=== PATIENT | male | born 1940 | race Caucasian/White ===

== ENCOUNTER → 2018-06-19 10:47 | Outpatient (CLI) | payer MEDICARE, SELFPAY | PROVIDERS: Family Provider Family Medicine Geriatric Medicine; PCP Family Medicine Geriatric Medicine; Referring Provider Family Medicine Geriatric Medicine; Visit Provider Family Medicine Geriatric Medicine | DX: R69 Illness, unspecified (principal) | CPT/HCPCS: 87633 ==

== ENCOUNTER → 2018-07-08 15:08 | Outpatient (CLI) | payer MEDICARE, SELFPAY ==
[2018-07-08 17:23] LABS: Absolute Lymphocyte Count 1.97 X10^3/ul (0.83-4.51); Absolute Neutrophil Count 4.8 X10^3/uL (2.0-7.7); Basophil# 0.03 X10^3/uL; Basophil% 0.4 % (0-1); Eosinophil# 0.14 X10^3/uL; Eosinophils% 1.8 % (0-5); Hematocrit 41.9 % (40-54); Hemoglobin 13.8 g/dl (13.0-16.5); Lymphocyte # 1.97 X10^3/ul (4.0); Lymphocyte % 25.4 % (19-41); Mean Corp Hgb Conc 32.9 g/gl (32-36); Mean Corpuscular Hgb 29.9 pg (27.0-32.0); Mean Corpuscular Volume 90.7 fL (80-94); Mean Platelet Vol. 10.2 fl (6.2-12.0); Monocyte% 10.3 % (0-10); Neutrophil # 4.78 X10^3/uL (2.7-7.7); Neutrophil % 61.7 % (47-70); Platelet Count 220 K/mm3 (150-450); RBC Distribution Width CV 13.2 % (11.6-14.6); RBC Distribution Width SD 43.6 fl (35.1-43.9); Red Blood Count 4.62 M/mm3 (4.6-6.2); White Blood Count 7.8 K/mm3 (4.4-11.0)
[2018-07-08 17:31] LABS: POSITIVE COUNT NO; POSITIVE DIFFERENTIAL NO; POSITIVE MORPHOLOGY NO
[2018-07-08 17:49] LABS: Vitamin D,25 Hydroxy 23.3 ng/mL (29.95-100.01)
[2018-07-08 17:58] LABS: AST(SGOT) 19 U/L (15-37); Alanine Aminotransfer ALT/SGPT 31 U/L (16-61); Albumin, Serum 3.7 g/dL (3.2-5.0); Alkaline Phosphatase 62 U/L (45-117); Anion Gap 10 (5-15); BUN 26 mg/dL (7-18); BUN/Creat Ratio 24.5 RATIO (10-20); Calcium,Total 8.8 mg/dL (8.5-10.1); Chloride 105 mmol/L (98-107); Creatinine, Serum 1.06 mg/dL (0.70-1.30); EST Glomerular Filtration Rate 72 mL/min (>60); Est Glom Filt Rate - Afr Amer 87 mL/min (>60); Globulin 3.7 g/dL (2.2-4.2); Glucose 146 mg/dL (74-106); Protein, Total 7.4 g/dL (6.4-8.2); Sodium Level 140 mmol/L (136-145); Thyroid Stim Hormone (TSH) 1.47 uIU/mL (0.358-3.74)
--- OUTSIDE RECORDS SUMMARY | 2018-09-09 21:17 | XMS RPT_ITS ---
:1940 Author Organization [facility] Care Team Providers Name Role Phone MARILYN, CHIP CHI Referring Unavailable Marilyn, Chip Chi Attending Unavailable Marilyn, Chip Chi Referring Unavailable Marilyn, Chip Chi Primary Care Unavailable Marilyn, Chip Chi Attending Unavailable Marilyn, Chip Chi Primary Care Unavailable PROBLEMS PROBLEMS DATE TYPE CONDITION / CODE ATTENDING STATUS SOURCE 06/19/2018 Unknown R69 - Illness, Marilyn, Chip Chi Active [facility] unspecified / Community R69(ICD-10) Hospital Repository 03/10/2018 Active Unknown / NA Active [facility] UNK(Unknown) Main [place] Repository PROCEDURES PROCEDURES No Procedure Records FoundRESULTS RESULTS CBC W/DIFF, AUTOMATED Collected: 07/08/2018 Status: F Source: [place] 3:10 PM [facility] REPOSITORY TYPE CODE TESTS RESULT OUT OF RANGE REFERENCE UNITS LAB L100.1000 4.4-11.0 K/mm3 Normal WBC 7.8 LAB L100.1200 4.6-6.2 M/mm3 Normal RBC 4.62 LAB L100.1300 13.0-16.5 g/dl Normal HGB 13.8 LAB L100.1400 40-54 % Normal HCT 41.9 LAB L100.1500 80-94 fL Normal MCV 90.7 LAB L100.1600 27.0-32.0 pg Normal MCH 29.9 LAB L100.1700 32-36 g/gl Normal MCHC 32.9 LAB L100.1810 11.6-14.6 % Normal RDW CV 13.2 LAB L100.1820 35.1-43.9 fl Normal RDW SD 43.6 LAB L100.1900 150-450 K/mm3 Normal PLT 220 LAB L100.2000 6.2-12.0 fl Normal MPV 10.2 LAB L100.2100 47-70 % Normal NEUT% 61.7 LAB L100.2200 19-41 % Normal LY% 25.4 LAB L100.2300 0-10 % High MONO% 10.3 LAB L100.2400 0-5 % Normal EO% 1.8 LAB L100.2500 0-1 % Normal BASO% 0.4 LAB L100.2550 0.0-0.9 % Normal IM GRAN % 0.400 Result Comment: IG% - Immature Granulocytes (promyelocytes, myelocytes and metamyelocytes) > 1% indicates that a LEFT SHIFT is Present. LAB L100.2620 2.0-7.7 X10 3/uL Normal Absolute Neut 4.8 LAB L100.2720 0.83-4.51 X10 3/ul Normal Absolute Lymph 1.97 Performed By: #### L100.0100 #### [facility] [address] [place], [place], [address] VITAMIN D,25 HYDROXY Collected: 07/08/2018 Status: F Source: [place] 3:10 PM [facility] REPOSITORY TYPE CODE TESTS RESULT OUT OF REFERENCE UNITS RANGE LAB L506.1000 29.95-100.01 ng/mL Low Vitamin D 23.3 25-OH Result Comment: Vitamin D 25(OH) Status Range Deficiency <20 ng/mL (50nmol/L) Insuffciency 20 - 30 ng/mL (50 - 75 nmol/L) Sufficiency 30 - 100 ng/mL (75 - 250 nmol/L) Toxicity >100 ng/mL (>250 nmol/L) Performed By: #### L506.1000, L509.3000 #### [facility] [address] [place], [address] TESTOSTERONE, SERUM TOTAL Collected: 07/08/2018 Status: F Source: [place] 3:10 PM [facility] REPOSITORY TYPE CODE TESTS RESULT OUT OF REFERENCE UNITS RANGE LAB L509.3000 ng/dL Testosterone Normal 362.11 Result Comment: NORMAL REFERENCE RANGES MALE AGE <50 123.06 - 813.86 ng/dL MALE AGE >50 89.98 - 780.10 ng/dL FEMALE PREMENOPAUSE AGE 21 - 60 9.01 - 47.94 ng/dL FEMALE POSTMENOPAUSE AGE 45 - 89 <7.00 - 45.62 ng/dL REFERENCE RANGE AND METHODOLOGY CHANGED 06/05/2017 Performed By: #### L506.1000, L509.3000 #### [facility] [address] [place], [address] COMPREHENSIVE METABOLIC Collected: 07/08/2018 Status: F Source: [place] [facility] 3:10 PM [facility] REPOSITORY TYPE CODE TESTS RESULT OUT OF RANGE REFERENCE UNITS LAB L501.0100 74-106 mg/dL High GLU 146 Result Comment: Fasting Glucose result greater than or equal to 126 mg/dL suggests DIABETES MELLITUS per A.D.A. criteria. Please note revised GLUCOSE reference range effective 2017. LAB L501.1000 7-18 mg/dL High BUN 26 LAB L501.1100 0.70-1.30 mg/dL Normal CREAT,SERUM 1.06 Result Comment: The validity of the calculated GFR AND GFRAA in patients over 70 years has not been determined. Clinical correlation is essential. LAB L501.1110 >60 mL/min Normal EST GFR 72 Result Comment: Non- GFR Calc LAB L501.1115 >60 mL/min Normal EST GFR - AA 87 Result Comment: GFR Calc LAB L501.1300 10-20 RATIO High BUN/CRE 24.5 LAB L501.1500 6.4-8.2 g/dL T Normal PROT 7.4 LAB L501.1800 3.2-5.0 g/dL Normal ALB 3.7 LAB L501.1950 2.2-4.2 g/dL Normal GLOB 3.7 LAB L501.2000 0.9-2.4 RATIO Normal A/G 1.0 LAB L501.2200 8.5-10.1 mg/dL CA Normal 8.8 LAB L501.4100 15-37 U/L Normal AST 19 LAB L501.4305 45-117 U/L Normal ALK P 62 LAB L501.4405 16-61 U/L Normal ALT 31 LAB L501.4600 0.20-1.00 mg/dL T Normal BILI 0.50 LAB L501.5300 136-145 mmol/L NA Normal 140 LAB L501.5600 3.5-5.1 mmol/L K Normal 4.0 LAB L501.5900 98-107 mmol/L CL Normal 105 LAB L501.6100 21.0-32.0 mmol/L Normal CO2 25.0 LAB L501.6200 5-15 Normal GAP 10 Performed By: #### L500.4050, L501.9520 #### [facility] [address] [place], [address] THYROID STIM HORMONE Collected: 07/08/2018 Status: F Source: [place] (TSH) 3:10 PM [facility] REPOSITORY TYPE CODE TESTS RESULT OUT OF RANGE REFERENCE UNITS LAB L501.9520 0.358-3.74 uIU/mL Normal TSH 1.47 Performed By: #### L500.4050, L501.9520 #### [facility] [address] [place], [address] Observed: 06/19/2018 Status: F Source: [place] RESPIRATORY PANEL 10:43 AM [facility] MOLECULAR REPOSITORY RP PANEL ADENOVIRUS Not Detected HUMAN METAPHNEUMO Not Detected INFLUENZA A Not Detected INFLUENZA A (SUBTYPE H1) Not Detected INFLUENZA A (SUBTYPE H3) Not Detected INFLUENZA B Not Detected PARAINFLUENZA 1 Not Detected PARAINFLUENZA 2 Not Detected PARAINFLUENZA 3 Not Detected PARAINFLUENZA 4 Not Detected RHINOVIRUS Not Detected RSV A Not Detected RSV B Not Detected NAAT METHOD Testing was performed using nucleic acid amplification Performed By: #### M100.638 #### [address] [place], [place], [address] HIV 12 COMBO (AG/AB) Collected: 04/16/2018 Status: F Source: [place] 5:30 PM [facility] REFERENCE REPOSITORY TYPE CODE TESTS RESULT OUT OF REFERENCE UNITS RANGE LAB HVAGAB(LOIN Non Reactive C) HIV 12 Non Reactive Ag/Ab Performed By: #### HIV12C #### [facility] [address], [place] [address] #### SYPHGX, HSVG12 #### [facility] Routine Lab [address] [place], [place] [phone] SYPHILIS IGG WITH Collected: 04/16/2018 Status: F Source: [place] CONF 5:30 PM CLINIC REFERENCE REPOSITORY TYPE CODE TESTS RESULT OUT OF RANGE REFERENCE UNITS LAB SYPHQL(L Nonreactive OINC) Syphilis IgG, Qual Nonreactive LAB SYPHLG(L AI OINC) Syphilis IgG <0.2 LAB RPR(LOIN Non Reactive C) RPR NOTI Abnormal LAB RPRQNT(L OINC) RPR Quant NOTI Titer LAB TPAGQL(L Negative OINC) T. pallidum NOTI Abnormal IgG Qual LAB TPABG(LO Index INC) Value T. pallidum, NOTI IgG LAB SYPINT(L OINC) Syphilis NOTI Interpretation Performed By: #### HIV12C #### [facility] [address] [place] [address] #### SYPHGX, HSVG12 #### [facility] [address] [place] [address] HSVG TYP 1 AND 2 Collected: 04/16/2018 Status: F Source: [facility] 5:30 PM CLINIC REFERENCE REPOSITORY TYPE CODE TESTS RESULT OUT OF RANGE REFERENCE UNITS LAB HSVG1L(LO Negative INC) HSV IgG Abnormal 1 Qualitative Positive LAB HSVG1(ANGELICA AI NC) Herpes Simplex IgG 1 >8.0 LAB HSVG2L(LO Negative INC) HSV IgG Abnormal 2 Qualitative Positive LAB HSVG2(ANGELICA AI NC) Herpes Simplex IgG 2 >8.0 Performed By: #### HIV12C #### [facility] [address] [place] [address] #### SYPHGX, HSVG12 #### [facility] [address] [place] [address] CHLAMYDIA IGG PANL Collected: 04/16/2018 Status: F Source: [place] 5:30 PM CLINIC REFERENCE REPOSITORY TYPE CODE TESTS RESULT OUT OF RANGE REFERENCE UNITS LAB CHTRAG(ANGELICA <1:64 NC) C. trachomatis IgG DLT64 Ab LAB CHPNEG(ANGELICA <1:64 NC) C. Abnormal pneumoniae IgG Ab D128 LAB CHPSIG(ANGELICA <1:64 NC) C. psittaci IgG Ab <1:64 Performed By: #### HIV12C #### [facility] [address] [place] [phone] #### SYPHGX, HSVG12 #### [facility] [address] [place] [phone] CHLAMYDIA IGM PANL Collected: 04/16/2018 Status: F Source: [place] 5:30 PM CLINIC REFERENCE REPOSITORY TYPE CODE TESTS RESULT OUT OF REFERENCE UNITS RANGE LAB CHTRAM(ANGELICA <1:20 NC) C. trachomatis IgM DLT20 LAB CHPNEM(ANGELICA <1:20 NC) C. pneumoniae IgM DLT20 LAB CHPSIM(ANGELICA <1:20 NC) C. psittaci IgM DLT20 LAB CHMINT(ANGELICA NC) IgM Interp SEE NOTE Performed By: #### HIV12C #### [facility] [address] [place] [phone] #### SYPHGX, HSVG12 #### [facility] [address] [place] [address] Observed: 04/16/2018 Status: F Source: [place] URINE CULTURE 4:37 PM CLINIC REFERENCE REPOSITORY Specimen Desc: URINE Sp. Request/Comment: PRESRV Culture Result 10,000 - <50,000 CFU/ml Klebsiella pneumoniae(*) Insignificant colony count. No further workup. Report Status [id number] FINAL XR ABDOMEN 1V SUPINE Observed: 03/10/2018 Status: F Source: [place] 10:33 AM [facility] REPOSITORY * * *Final Report* * * DATE OF EXAM: Mar 10 2018 10:33AM WRX [id number] - XR ABDOMEN 1V SUPINE / PROCEDURE REASON: abd * * * * Physician Interpretation * * * * EXAMINATION: XR ABDOMEN 1V SUPINE HISTORY: Gasseous pain and belching with inability to keep food down x 3 days. abd. TECHNIQUE: XR ABDOMEN 1V SUPINE Laterality: NOT APPLICABLE Number of different views (projections): 1 M: XB_1 COMPARISON: Comparison is made to prior study dated 14 February 2017 RESULT: 3 Supine views of the abdomen demonstrate a nonobstructive bowel gas pattern with fecal retention. The soft tissues and bony structures are unremarkable. There are no pathologic calculi. IMPRESSION: Nonobstructive bowel gas pattern with fecal retention. Chemicals Distiller: JESSICA Transcribe Date/Time: Mar 10 2018 10:53A Dictated by : BRE ENGEL MD This examination was interpreted and the report reviewed and electronically signed by: BRE ENGEL MD on Mar 10 2018 10:59AM EST [id number] PROGRESS Observed: 03/10/2018 Status: COMPLETED Source: [place] 10:22 AM [facility] REPOSITORY HNO ID: [id number] Author: Pretty Guevara (Rt) Andrea Moser Service: (none) Author Type: District Extension Service Agent Type: Progress Notes Filed: 03/10/2018 10:33 AM Note Text: Radiology Service Progress Note PATIENT NAME: Faustino Patrick DATE OF SERVICE: March 10, 2018 TIME: 10:22 AM PATIENT IDENTITY VERIFICATION COMPLETED USING TWO (2) METHODS: Patient confirmed name verbally and Date of . PATIENT GENDER DATA: Male PATIENT RELEVANT IMPLANT DATA REVIEWED: Not Applicable RADIOLOGY DEPARTMENT: General X-ray: Exam(s) Completed: Abdomen X-Ray Abdomen PERIPHERAL IV DATA: Not applicable SIGNED BY: RT Ede March 10, 2018 10:22 AM CBC AND DIFFERENTIAL Collected: 03/10/2018 Status: F Source: [place] 10:20 AM [facility] REFERENCE REPOSITORY TYPE CODE TESTS RESULT OUT OF REFERENCE UNITS RANGE LAB WBC(LOINC) 3.70-11.00 k/uL WBC 6.60 LAB RBC(LOINC) 4.20-6.00 m/uL RBC 4.80 LAB HGB(LOINC) 13.0-17.0 g/dL Hemoglobin 14.3 LAB HCT(LOINC) 39.0-51.0 % Hematocrit 43.1 LAB MCV(LOINC) 80.0-100.0 fL MCV 89.8 LAB MCH(LOINC) 26.0-34.0 pG MCH 29.8 LAB MCHC(LOINC 30.5-36.0 g/dL ) MCHC 33.2 LAB RDWCV(LOIN 11.5-15.0 % C) RDW-CV 12.2 LAB PLTCT(LOIN 150-400 k/uL C) Platelet Count 168 LAB MPV(LOINC) 9.0-12.7 fL MPV 10.7 LAB ANEUT(LOIN % C) Neut% 59.8 LAB AANEUT(ANGELICA 1.45-7.50 k/uL NC) Abs Neut 3.95 LAB ALYMP(LOIN % C) Lymph% 25.6 LAB AALYMP(ANGELICA 1.00-4.00 k/uL NC) Abs Lymph 1.69 LAB AMONO(LOIN % C) [place]% 12.3 LAB AAMONO(ANGELICA <0.87 k/uL NC) Abs [place] 0.81 LAB AEOS(LOINC % ) Eosin% 1.8 LAB AAEOS(LOIN <0.46 k/uL C) Abs Eosin 0.12 LAB ABASO(LOIN % C) Baso% 0.5 LAB AABASO(ANGELICA <0.11 k/uL NC) Abs Baso 0.03 LAB AUNRBC(ANGELICA 0 /100 WBC NC) NRBCs 0.0 LAB ABNRBC(ANGELICA <0.01 k/uL NC) Absolute nRBC <0.01 LAB DTYP(LOINC ) DTYPE ADIFF Performed By: #### CBCDIF, BMP #### [facility] [address] [place], [place] [address] BASIC METABOLIC PANL Collected: 03/10/2018 Status: F Source: [place] 10:20 AM CLINIC REFERENCE REPOSITORY TYPE CODE TESTS RESULT OUT OF REFERENCE UNITS RANGE LAB GLU(LOINC) 74-99 mg/dL Glucose High 287 LAB BUN(LOINC) 9-24 mg/dL BUN 15 LAB CRET(LOINC 0.73-1.22 mg/dL ) Creatinine 0.92 LAB NA(LOINC) 136-144 mmol/L Low Sodium 134 LAB K(LOINC) 3.7-5.1 mmol/L Potassium 4.3 LAB CL(LOINC) 97-105 mmol/L Low Chloride 94 LAB CO2(LOINC) 22-30 mmol/L CO2 27 LAB AGAP(LOINC 9-18 mmol/L ) Anion Gap 13 LAB CA(LOINC) 8.5-10.2 mg/dL Calcium, Total 9.2 LAB GFRAA(LOIN C) eGFR- >60 Amer. LAB GFRNAA(ANGELICA . NC) eGFR-All Other Races >60 Performed By: #### CBCDIFDELLA #### [facility] [address] [place], [place] [address] CBC AND DIFFERENTIAL Collected: 12/31/2017 Status: F Source: [place] 5:03 PM [facility] REFERENCE REPOSITORY TYPE CODE TESTS RESULT OUT OF REFERENCE UNITS RANGE LAB WBC(LOINC) 3.70-11.00 k/uL WBC 7.14 LAB RBC(LOINC) 4.20-6.00 m/uL RBC 4.90 LAB HGB(LOINC) 13.0-17.0 g/dL Hemoglobin 14.8 LAB HCT(LOINC) 39.0-51.0 % Hematocrit 45.3 LAB MCV(LOINC) 80.0-100.0 fL MCV 92.4 LAB MCH(LOINC) 26.0-34.0 pG MCH 30.2 LAB MCHC(LOINC 30.5-36.0 g/dL ) MCHC 32.7 LAB RDWCV(LOIN 11.5-15.0 % C) RDW-CV 12.8 LAB PLTCT(LOIN 150-400 k/uL C) Platelet Count 179 LAB MPV(LOINC) 9.0-12.7 fL MPV 10.5 LAB ANEUT(LOIN % C) Neut% 61.2 LAB AANEUT(ANGELICA 1.45-7.50 k/uL NC) Abs Neut 4.37 LAB ALYMP(LOIN % C) Lymph% 26.6 LAB AALYMP(ANGELICA 1.00-4.00 k/uL NC) Abs Lymph 1.90 LAB AMONO(LOIN % C) [place]% 10.1 LAB AAMONO(ANGELICA <0.87 k/uL NC) Abs [place] 0.72 LAB AEOS(LOINC % ) Eosin% 1.7 LAB AAEOS(LOIN <0.46 k/uL C) Abs Eosin 0.12 LAB ABASO(LOIN % C) Baso% 0.4 LAB AABASO(ANGELICA <0.11 k/uL NC) Abs Baso 0.03 LAB AUNRBC(ANGELICA 0 /100 WBC NC) NRBCs High 0.3 LAB ABNRBC(ANGELICA <0.01 k/uL NC) Absolute High nRBC 0.02 LAB DTYP(LOINC ) DTYPE ADIFF Performed By: #### CBCDIF, CMP, LIPB, TSH #### [facility] [address] [id number] #### D2D3 #### [facility] [address] [address] COMP METABOLIC PANEL Collected: 12/31/2017 Status: F Source: [place] 5:03 PM CLINIC REFERENCE REPOSITORY TYPE CODE TESTS RESULT OUT OF REFERENCE UNITS RANGE LAB TP(LOINC) 6.3-8.0 g/dL Low Protein, Total 6.0 LAB ALB(LOINC) 3.9-4.9 g/dL Albumin 3.9 LAB CA(LOINC) 8.5-10.2 mg/dL Calcium, Total 9.4 LAB TBIL(LOINC 0.2-1.3 mg/dL ) Bilirubin, Total 0.4 LAB ALKP(LOINC 36-108 U/L ) Alkaline Phosphatase 60 LAB AST(LOINC) 14-40 U/L AST 27 LAB GLU(LOINC) 74-99 mg/dL Glucose High 204 LAB BUN(LOINC) 9-24 mg/dL BUN 17 LAB CRET(LOINC 0.73-1.22 mg/dL ) Creatinine 1.05 LAB NA(LOINC) 136-144 mmol/L Sodium 137 LAB K(LOINC) 3.7-5.1 mmol/L Potassium 4.0 LAB CL(LOINC) 97-105 mmol/L Chloride 99 LAB CO2(LOINC) 22-30 mmol/L CO2 24 LAB AGAP(LOINC 9-18 mmol/L ) Anion Gap 14 LAB ALT(LOINC) 10-54 U/L ALT 29 LAB GFRAA(LOIN C) eGFR- >60 Amer. LAB GFRNAA(ANGELICA . NC) eGFR-All Other Races >60 Performed By: #### CBCDIF, CMP, LIPB, TSH #### [facility] [address] [place] [phone] #### D2D3 #### [facility] [address] [place], [place] [phone] LIPID PANEL, BASIC Collected: 12/31/2017 Status: F Source: [place] 5:03 PM CLINIC REFERENCE REPOSITORY TYPE CODE TESTS RESULT OUT OF REFERENCE UNITS RANGE LAB CHOL(LOINC <200 mg/dL ) Cholesterol 149 LAB TRIGLY(ANGELICA <150 mg/dL NC) Triglyceride High 351 LAB HDL(LOINC) >39 mg/dL Low HDL-Cholesterol 25 LAB LDL(LOINC) <100 mg/dL LDL-Cholesterol 54 LAB NONHDL(ANGELICA <130 mg/dL NC) Non HDL Cholesterol 124 LAB FT(LOINC) hrs Fasting Time UN LAB VLDL(LOINC <30 mg/dL ) VLDL High Cholesterol 70 LAB TCHDL(LOIN <5.10 C) TC:HDL Ratio High 5.96 LAB LDLHDL(ANGELICA <2.54 NC) LDL:HDL Ratio 2.16 Performed By: #### CBCDIF, CMP, LIPB, TSH #### [facility] [address] [place] [address] #### D2D3 #### [facility] [address] [place] [address] TSH Collected: 12/31/2017 Status: F Source: [place] 5:03 CLINIC REFERENCE REPOSITORY TYPE CODE TESTS RESULT OUT OF RANGE REFERENCE UNITS LAB TSH(LOINC) 0.400-5.500 uU/mL TSH 2.600 Performed By: #### CBCDIF, CMP, LIPB, TSH #### [facility] [address] [place] [address] #### D2D3 #### [facility] [address] [place] [address] 25-HYDROXY D2+D3 Collected: 12/31/2017 Status: F Source: [place] 5:03 PM CLINIC REFERENCE REPOSITORY TYPE CODE TESTS RESULT OUT OF RANGE REFERENCE UNITS LAB 25OHD2(LOIN ng/mL C) <4.0 25-Hydroxy D2 LAB 25OHD3(LOIN ng/mL C) 24.3 25-Hydroxy D3 LAB 25OHDT(LOIN 30.0-100.0 ng/mL C) Low 24.3 25-Hydroxy D Total Performed By: #### CBCDIF, CMP, LIPB, TSH #### [facility] [address] [place], [place] [address] #### D2D3 #### [facility] [address] [place], [place] [address] CBC AND DIFFERENTIAL Collected: 07/03/2017 Status: F Source: [place] 5:03 PM CLINIC REFERENCE REPOSITORY TYPE CODE TESTS RESULT OUT OF REFERENCE UNITS RANGE LAB WBC(LOINC) 3.70-11.00 k/uL WBC 8.43 LAB RBC(LOINC) 4.20-6.00 m/uL RBC 5.19 LAB HGB(LOINC) 13.0-17.0 g/dL Hemoglobin 15.6 LAB HCT(LOINC) 39.0-51.0 % Hematocrit 48.3 LAB MCV(LOINC) 80.0-100.0 fL MCV 93.1 LAB MCH(LOINC) 26.0-34.0 pG MCH 30.1 LAB MCHC(LOINC 30.5-36.0 g/dL ) MCHC 32.3 LAB RDWCV(LOIN 11.5-15.0 % C) RDW-CV 13.1 LAB PLTCT(LOIN 150-400 k/uL C) Platelet Count 214 LAB MPV(LOINC) 9.0-12.7 fL MPV 10.5 LAB ANEUT(LOIN % C) Neut% 60.8 LAB AANEUT(ANGELICA 1.45-7.50 k/uL NC) Abs Neut 5.13 LAB ALYMP(LOIN % C) Lymph% 26.7 LAB AALYMP(ANGELICA 1.00-4.00 k/uL NC) Abs Lymph 2.25 LAB AMONO(LOIN % C) [place]% 10.7 LAB AAMONO(ANGELICA <0.87 k/uL NC) Abs [place] High 0.90 LAB AEOS(LOINC % ) Eosin% 1.3 LAB AAEOS(LOIN <0.46 k/uL C) Abs Eosin 0.11 LAB ABASO(LOIN % C) Baso% 0.5 LAB AABASO(ANGELICA <0.11 k/uL NC) Abs Baso 0.04 LAB AUNRBC(ANGELICA 0 /100 WBC NC) NRBCs 0.0 LAB ABNRBC(ANGELICA <0.01 k/uL NC) Absolute nRBC <0.01 LAB DTYP(LOINC ) DTYPE ADIFF Performed By: #### CBCDIF, CMP, LIPB, TSH #### [facility] [address] [place], [place] [address] #### D2D3 #### [facility] [address] [place] [address] COMP METABOLIC PANEL Collected: 07/03/2017 Status: F Source: [place] 5:03 PM CLINIC REFERENCE REPOSITORY TYPE CODE TESTS RESULT OUT OF REFERENCE UNITS RANGE LAB TP(LOINC) 6.3-8.0 g/dL Protein, Total 7.5 LAB ALB(LOINC) 3.9-4.9 g/dL Albumin 4.3 LAB CA(LOINC) 8.5-10.2 mg/dL Calcium, Total 9.3 LAB TBIL(LOINC 0.2-1.3 mg/dL ) Bilirubin, Total 0.6 LAB ALKP(LOINC 36-108 U/L ) Alkaline Phosphatase 66 LAB AST(LOINC) 14-40 U/L AST 24 LAB GLU(LOINC) 74-99 mg/dL Glucose High 120 LAB BUN(LOINC) 9-24 mg/dL BUN 18 LAB CRET(LOINC 0.73-1.22 mg/dL ) Creatinine 1.02 LAB NA(LOINC) 136-144 mmol/L Sodium 137 LAB K(LOINC) 3.7-5.1 mmol/L Potassium 4.4 LAB CL(LOINC) 97-105 mmol/L Chloride 99 LAB CO2(LOINC) 22-30 mmol/L CO2 27 LAB AGAP(LOINC 9-18 mmol/L ) Anion Gap 11 LAB ALT(LOINC) 10-54 U/L ALT 29 LAB GFRAA(LOIN C) eGFR- >60 Amer. LAB GFRNAA(ANGELICA . NC) eGFR-All Other Races >60 Performed By: #### CBCDIF, CMP, LIPB, TSH #### [facility] [address] [place], [place] [address] #### D2D3 #### [facility] [address] [place], [place] [phone] LIPID PANEL, BASIC Collected: 07/03/2017 Status: F Source: [place] 5:03 PM CLINIC REFERENCE REPOSITORY TYPE CODE TESTS RESULT OUT OF REFERENCE UNITS RANGE LAB CHOL(LOINC <200 mg/dL ) Cholesterol 150 LAB TRIGLY(ANGELICA <150 mg/dL NC) Triglyceride 130 LAB HDL(LOINC) >39 mg/dL HDL-Cholesterol 40 LAB LDL(LOINC) <100 mg/dL LDL-Cholesterol 84 LAB NONHDL(ANGELICA <130 mg/dL NC) Non HDL Cholesterol 110 LAB FT(LOINC) hrs Fasting Time UN LAB VLDL(LOINC <30 mg/dL ) VLDL Cholesterol 26 LAB TCHDL(LOIN <5.10 C) TC:HDL Ratio 3.75 LAB LDLHDL(ANGELICA <2.54 NC) LDL:HDL Ratio 2.10 Performed By: #### CBCDIF, CMP, LIPB, TSH #### [facility] [address] [place] [address] #### D2D3 #### [facility] [address] [place], [place] [phone] TSH Collected: 07/03/2017 Status: F Source: [place] 5:03 PM CLINIC REFERENCE REPOSITORY TYPE CODE TESTS RESULT OUT OF RANGE REFERENCE UNITS LAB TSH(LOINC) 0.400-5.500 uU/mL TSH 2.080 Performed By: #### CBCDIF, CMP, LIPB, TSH #### [facility] [address] [place], [place] [address] #### D2D3 #### [facility] [address] [place], [place] [phone] 25-HYDROXY D2+D3 Collected: 07/03/2017 Status: F Source: [place] 5:03 PM CLINIC REFERENCE REPOSITORY TYPE CODE TESTS RESULT OUT OF RANGE REFERENCE UNITS LAB 25OHD2(LOIN ng/mL C) <4.0 25-Hydroxy D2 LAB 25OHD3(LOIN ng/mL C) 17.1 25-Hydroxy D3 LAB 25OHDT(LOIN 30.0-100.0 ng/mL C) Low 17.1 25-Hydroxy D Total Performed By: #### CBCDIF, CMP, LIPB, TSH #### [facility] Lab [address] [place] [address] #### D2D3 #### [facility] [address] [place] [address] ALLERGIES ALLERGIES No Allergies Records FoundENCOUNTERS ENCOUNTERS ADMIT/DISCHARGE ACCOUNT ADMITTING ENCOUNTER LOCATION SOURCE NUMBER CLASS 07/08/2018 [id number] [facility] ing:POLAB3 Repository 06/19/2018 [id number] [facility] ing:PSN Repository 03/10/2018/03/10/[id number] Repository PAYERS PAYERS ENCOUNTER GUARANTOR PAYER SUBSCRIBER SOURCE 07/08/2018 [facility] Primary FAUSTINO Talbot [id number] Insurance:ANTHEM HOSTETLERDOB: Community NORM[employer]Y [employer]APT MEDICARE PPOPolicy [id number] Number: Repository [id number]: 330 [id number] () Date:[id number] [address] [place] [address]SL: 07/08/2018 Secondary NOT GIVENUNK Ant[place] Insurance:SELF PAY [facility] Number: Effective Repository Date:2018-07-08 06/19/2018 [facility] Primary FAUSTINO Talbot [id number] Insurance:ANTHEM HOSTETLERDOB: Community NORMANDY [employer]APT MEDICARE PPOPolicy [id number] Number: Repository [id number]: [id number] [phone] () Date:[id number] [id number] [address] [id number]: 06/19/2018 Secondary NOT GIVENUNK [employer] Insurance:SELF PAY [facility] Effective Rep[facility] Date:2018-06-19
== END ==
PROVIDERS: Family Provider Family Medicine Geriatric Medicine; PCP Family Medicine Geriatric Medicine; Visit Provider Family Medicine Geriatric Medicine
DX: I10 Essential (primary) hypertension (principal); E55.9 Vitamin D deficiency, unspecified; F52.8 Other sexual dysfunction not due to a substance or known physiological condition
CPT/HCPCS: 36415; 80053; 82306; 84403; 84443; 85025

== ENCOUNTER → 2018-11-06 | Outpatient (CLI) | payer MEDICARE, SELFPAY ==
[2018-11-06 15:40] LABS: Bacteria 0 SEEN /hpf (None Seen); Mucous, Urine 0 SEEN /hpf (<or=2+); Red Blood Cells-Urine 0 SEEN /hpf (0-5); White Blood Cells 0 SEEN /hpf (0-5)
[2018-11-06 17:59] LABS: Absolute Lymphocyte Count 2.12 X10^3/ul (0.83-4.51); Absolute Neutrophil Count 4.7 X10^3/uL (2.0-7.7); Basophil# 0.02 X10^3/uL; Basophil% 0.2 % (0-1); Eosinophil# 0.15 X10^3/uL; Eosinophils% 1.9 % (0-5); Hematocrit 43.3 % (40-54); Hemoglobin 14.2 g/dl (13.0-16.5); Lymphocyte # 2.12 X10^3/ul (4.0); Lymphocyte % 26.4 % (19-41); Mean Corp Hgb Conc 32.8 g/gl (32-36); Mean Corpuscular Hgb 29.6 pg (27.0-32.0); Mean Corpuscular Volume 90.2 fL (80-94); Mean Platelet Vol. 9.9 fl (6.2-12.0); Monocyte# 1.05 X10^3/uL; Monocyte% 13.1 % (0-10); Neutrophil # 4.65 X10^3/uL (2.7-7.7); Platelet Count 230 K/mm3 (150-450); RBC Distribution Width CV 12.9 % (11.6-14.6); RBC Distribution Width SD 42.3 fl (35.1-43.9)
[2018-11-06 18:00] LABS: Color, Urine Yellow (Yellow); Glucose, Dipstick Normal (Normal); Ketone-Dipstick Negative (Negative); Leukocyte Esterase-Dipstick Negative /ul (Negative); Nitrite-Dipstick Negative (Negative); Occult Blood-Urine Negative /ul (Negative); POSITIVE COUNT NO; POSITIVE DIFFERENTIAL NO; POSITIVE MORPHOLOGY NO; Protein-Dipstick Negative (Negative); Urine Bilirubin Dipstick Negative (Negative); Urine Clarity Sl. Cloudy (Clear); Urine Urobilinogen Normal (Normal)
[2018-11-06 18:09] LABS: Squamous Epithelial Cells - UA 0-5 SEEN /hpf (0-5)
[2018-11-06 18:27] LABS: Microalbumin,Random Urine 26.6 mg/L (NO RANGE EST.); Microalbumin:Creatinine Ratio 14.9 mg/g CRE (<30 mg/g CRE)
[2018-11-06 18:38] LABS: ALB/GLOB Ratio 1.1 RATIO (0.9-2.4); AST(SGOT) 16 U/L (15-37); Alanine Aminotransfer ALT/SGPT 33 U/L (16-61); Albumin, Serum 3.7 g/dL (3.2-5.0); Alkaline Phosphatase 64 U/L (45-117); Anion Gap 8 (5-15); BUN 27 mg/dL (7-18); BUN/Creat Ratio 23.3 RATIO (10-20); Chloride 107 mmol/L (98-107); Cholesterol 123 mg/dL (200); Creatinine, Serum 1.16 mg/dL (0.70-1.30); EST Glomerular Filtration Rate 65 mL/min (>60); Est Glom Filt Rate - Afr Amer 79 mL/min (>60); Globulin 3.5 g/dL (2.2-4.2); Glucose 135 mg/dL (74-106); High Density Lipoprotein 34 mg/dL; Potassium 4.6 mmol/L (3.5-5.1); Protein, Total 7.2 g/dL (6.4-8.2); Sodium Level 143 mmol/L (136-145); Thyroid Stim Hormone (TSH) 1.15 uIU/mL (0.358-3.74); Triglycerides 222 mg/dL; Very Low Density Lipoprotein 44 mg/dL (5-40)
[2018-11-06 18:40] LABS: Hemoglobin A1c 7.3 % (4.2-6.3)
== END | disposition home or self-care (01) ==
PROVIDERS: Family Provider Family Medicine; PCP Family Medicine; Referring Provider Family Medicine; Visit Provider Family Medicine
DX: I10 Essential (primary) hypertension (principal); E78.5 Hyperlipidemia, unspecified; E11.9 Type 2 diabetes mellitus without complications
CPT/HCPCS: 36415; 80053; 80061; 81001; 82043; 82570; 83036; 84443; 85025

== ENCOUNTER → 2019-01-07 | Outpatient (CLI) | payer MEDICARE, SELFPAY ==
--- NOTE | 2019-01-07 09:23 | BD_ITS ---
STUDY: DUAL ENERGY X-RAY ABSORPTIOMETRY / DXA REASON FOR EXAM: Male, 78 years old. Loss of height. TECHNIQUE: Bone Mineral Density (BMD) measurements of lumbar spine and bilateral hips were obtained. COMPARISON: None. FINDINGS: Lumbar Spine (L1-L4): g/cm2 (1.311) / T-score (0.8) / Z-score (1.4) Findings are suggestive of normal bone density with a low fracture risk. Left Femur Total: g/cm2 (0.949) / T-score (-1.1) / Z-score (-0.1) Left Femoral Neck: g/cm2 (0.762) / T-score (-2.4) / Z-score (-0.9) Right Femur Total: g/cm2 (0.939) / T-score (-1.1) / Z-score (-0.1) Right Femoral Neck: g/cm2 (0.770) / T-score (-2.3) / Z-score (-0.9) BD/Dexa Bone Density Study IMPRESSION: The patient is considered osteopenic as outlined below according to World [place] Organization (WHO) criteria with a high fracture risk. Reference Information: The T-score is the number of standard deviations above or below the standard which is normal for young adults at their peak bone mineral density. The World Health Organization (WHO) interprets the T-scores as follows: Above -1 Normal bone density Between -1 and -2.5 Osteopenia Equal to / or below -2.5 Osteoporosis As a practical clinical guideline, osteopenia may be graded as follows: Mild -1 through -1.5 Moderate -1.6 through -2.0 Severe -2.1 through -2.4 The Z-score is the number of standard deviations above or below age-matched controls. A Z-score of less than -1.5 would be considered abnormal. References: 1. NIH Osteoporosis and Related Bone Diseases http://www.osteo.org 2. International Society for Clinical Densitometry http://www.iscd.org 3. National Osteoporosis Foundation http://www.nof.org Electronically Signed: Speedy Solorzano, at 11:20 EDT , Service support ,
== END | disposition home or self-care (01) ==
LOC: OPBD 09:21
PROVIDERS: Family Provider Family Medicine; PCP Family Medicine; Referring Provider Family Medicine; Visit Provider Family Medicine
DX: M85.88 Other specified disorders of bone density and structure, other site (principal)
CPT/HCPCS: 77080

== ENCOUNTER → 2019-02-12 | Outpatient (CLI) | payer MEDICARE, SELFPAY ==
[2019-02-12 10:10] LABS: Absolute Lymphocyte Count 2.08 X10^3/uL (0.83-4.51); Absolute Neutrophil Count 4.5 X10^3/uL (2.0-7.7); Basophil# 0.03 X10^3/uL; Basophil% 0.4 % (0-1); Eosinophil# 0.19 X10^3/uL; Eosinophils% 2.5 % (0-5); Hematocrit 42.7 % (40-54); Hemoglobin 14.1 g/dL (13.0-16.5); Lymphocyte # 2.08 X10^3/ul (4.0); Lymphocyte % 27.2 % (19-41); Mean Corpuscular Hgb 30.4 pg (27.0-32.0); Mean Platelet Vol. 9.3 fl (6.2-12.0); Monocyte# 0.81 X10^3/uL; Monocyte% 10.6 % (0-10); NRBC Flagged by Analyzer 0 % (0-5); Neutrophil # 4.48 X10^3/uL (2.7-7.7); Neutrophil % 58.6 % (47-70); Platelet Count 232 K/mm3 (150-450); RBC Distribution Width CV 12.7 % (11.6-14.6); RBC Distribution Width SD 42.7 fl (35.1-43.9); Red Blood Count 4.64 M/mm3 (4.6-6.2); White Blood Count 7.6 K/mm3 (4.4-11.0)
[2019-02-12 10:28] LABS: Hemoglobin A1c 6.8 % (4.2-6.3)
[2019-02-12 10:46] LABS: ALB/GLOB Ratio 0.9 RATIO (0.9-2.4); AST(SGOT) 18 U/L (15-37); Alanine Aminotransfer ALT/SGPT 35 U/L (16-61); Albumin, Serum 3.5 g/dL (3.2-5.0); Alkaline Phosphatase 71 U/L (45-117); Anion Gap 6 (5-15); BUN 21 mg/dL (7-18); BUN/Creat Ratio 17.4 RATIO (10-20); Calcium,Total 8.9 mg/dL (8.5-10.1); Chloride 106 mmol/L (98-107); Cholesterol 120 mg/dL (200); Creatinine, Serum 1.21 mg/dL (0.70-1.30); EST Glomerular Filtration Rate 62 mL/min (>60); Est Glom Filt Rate - Afr Amer 75 mL/min (>60); Globulin 3.7 g/dL (2.2-4.2); Glucose 133 mg/dL (74-106); High Density Lipoprotein 32 mg/dL; Phosphorus 2.8 mg/dL (2.5-4.9); Potassium 4.5 mmol/L (3.5-5.1); Protein, Total 7.2 g/dL (6.4-8.2); Sodium Level 141 mmol/L (136-145); Triglycerides 163 mg/dL; Very Low Density Lipoprotein 33 mg/dL (5-40)
[2019-02-12 10:52] LABS: Vitamin D,25 Hydroxy 27.2 ng/mL (29.95-100.01)
== END | disposition home or self-care (01) ==
LOC: MFPLAB 09:35
PROVIDERS: Family Provider Family Medicine; PCP Family Medicine; Referring Provider Family Medicine; Visit Provider Family Medicine
DX: M85.80 Other specified disorders of bone density and structure, unspecified site (principal); I10 Essential (primary) hypertension; E78.5 Hyperlipidemia, unspecified; E11.9 Type 2 diabetes mellitus without complications
CPT/HCPCS: 36415; 80053; 80061; 82306; 83036; 84100; 85025

== ENCOUNTER 2019-05-07 05:33 | Day surgery (SDC) | payer MEDICARE, SELFPAY ==
--- NOTE | 2019-05-04 02:05 | HP_ITS ---
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 Is patient in pain?: No Allergies No Known Allergies Allergy (Unverified 05/04/19 13:56) Medications atorvastatin 20 mg tablet PO #90 tab 05/04/19 [History Confirmed 05/04/19] lisinopril 20 mg-hydrochlorothiazide 12.5 mg tablet PO #60 tab 05/04/19 [History Confirmed 05/04/19] melatonin 10 mg capsule 10 mg PO HS 05/04/19 [History Confirmed 05/04/19] metformin 1,000 mg tablet PO #180 tab 05/04/19 [History Confirmed 05/04/19] metoprolol tartrate 25 mg tablet PO #180 tab 05/04/19 [History Confirmed 05/04/19] omeprazole 20 mg capsule,delayed release PO #30 cap 05/04/19 [History Confirmed 05/04/19] pioglitazone 30 mg tablet PO #90 tab 05/04/19 [History Confirmed 05/04/19] tamsulosin 0.4 mg capsule PO #90 cap 05/04/19 [History Confirmed 05/04/19] PFSH Medical History BPH (benign prostatic hyperplasia) (Acute) Diabetes (Acute) GERD (gastroesophageal reflux disease) (Acute) High cholesterol (Acute) HTN (hypertension) (Chronic) Surgical History S/P bilateral inguinal hernia repair (Acute) Family History Mother Diabetes Father Heart disease Sister Breast cancer Social History (Updated 05/04/19 @ 14:05 by Dexter Jordan MD) Smoking Status: Former smoker alcohol intake: never HPI HPI HPI: FAUSTINO PATRICK, is a 78 M who presents to the office today for HPI HPI Surgical H&P: Yes HPI: FAUSTINO PATRICK, is a 78 M who presents to the office today for surgical consultation regarding reflux and heartburn. Patient was referred by Dr Luc Aranda a written copy of my surgical consult recommendations will return to him. The patient has had for an extended period of time likely over 10 years symptomatic reflux disease. He has never had an upper endoscopy. He states that he is medicine dependent in order to keep the symptoms at bay. He has not noticed any bright red blood per rectum or melena. Has not had any unexpected weight loss. As of February 03 9019 his BUN is 21 creatinine 1.21. Liver function tests were normal. His white blood cell count was 7.6 with a hemoglobin of 14.1 and a platelet count returned 32,000. Now in our research we detected that June 06, 2010 at the [place] he had a colonoscopy performed. This demonstrated 2 polyps at the base of the cecum. One removed with snare and another with cold forceps. The pathology showed tubular adenoma. It was recommended to the patient that time that he return for follow-up colonoscopy at 5 years. He is not not done so as of yet. He denies any abdominal pain. Denies any change of bowel habit. ROS General General: No weight change, appetite, fatigue, colon cancer, breast cancer or weakness HEENT HEENT: No difficulty swallowing, eye injury, eye surgery, swollen glands or hoarseness Endo Endocrine: Yes diabetes mellitus; no thyroid disease, thyroid cancer, Hair loss, heat intolerance or cold intolerance Skin Skin: Yes changing moles; no rash Breast Breast: No left breast lump, right breast lump, nipple discharge, breast pain, abnormal mammogram, abnormal US or breast enlargement Musc Musculoskeletal: No back problems, arthritis, rheumatoid arthritis, gout or joint pain Cardio Cardiovascular: Yes high blood pressure; no murmur, pacemaker, heart disease, atrial fibrillation, heart attack, heart stent, palpitations, shortness of breat with exertion or chest pain Psych Psychiatric: No depression, anxiety or hearing voices Resp Respiratory: No shortness of breath, No sleep apnea, No cough, No COPD, No asthma, No emphysema, No wheezing Gastro Gastrointestinal: No abdominal pain, No nausea or vomiting, No diarrhea, No constipation, No blood in stool, Yes acid reflux, No hemorrhoids, No ulcers, No gallbladder problem, No black,tarry stools Guru Hematologic: Yes blood thinners, No blood disorders, No bleeding, No anemia, No blood clots Neuro Neurologic: No system reviewed and no additional complaints, except as docu, No as per HPI, No abnormal walking, No abnormal hearing, No abnormal movements, No abnormal speech, No behavioral changes, No burning sensations, No confusion, No seizure-like activity, No unsteadiness, No dizziness, No localized weakness, No frequent falls, No headache(s), No lack of coordination, No loss of vision, No memory loss, No numbness, No other visual disturbances, No radiating pain, No restless legs, No sensory deficit, No fainting, No tingling, No tremor(s), No weakness, No other Exam Const General: cooperative, healthy appearing, comfortable, no acute distress Nutritional Appearance: obese Orientation: alert, awake HENMT Head: normal to inspection Eyes General: appearance normal, both eyes and all related structures Chest Breast Palpation: No nipple discharge Resp Effort & Inspection: normal respiratory effort Auscultation: clear to auscultation bilaterally Cardio Rate: regular rate Rhythm: regular rhythm Heart Sounds: no murmurs GI Palpation: soft, no hepatosplenomegaly Auscultation: normal bowel sounds Other: Bulbous abdomen, no fluid wave, no mass, Other: Well-healed oblique bilateral groin incisions Musc Cervical Spine: normal cervical lordosis Neuro Cognition: normal cognition Extrem General: no calf tenderness bilaterally Psych Affect: normal affect Assessment & Plan Problems 1. Gastroesophageal reflux disease, esophagitis presence not specified K21.9 2. Personal history of colonic polyps Z86.010 Patient Instructions I recommended the patient a esophagogastroduodenoscopy with anticipated biopsy. Very careful inspection of the EG junction for reflux changes or possible changes of Baldwin's will be pursued. Inspection for possible H. pylori as well. In addition the patient has a personal history of colon polyps with 2 tubular adenoma removed from his cecum. His last colonoscopy was May 2010. He was supposed to have follow-up at 5 years. I recommend to have colonoscopy with possible biopsy or polypectomy as indicated. He is aware of the slightly increased risk because of the cecal location of his previous polyps of the potential for recurrence. He has had an opportunity to ask and have questions answered. We will schedule and proceed at his discretion. I very much appreciate the kind opportunity of assisting with his surgical care. CC: Dr Luc Jordan M.D., F.A.C.S. Coding Level of Care Code 84933 Diagnoses Gastroesophageal reflux disease, esophagitis presence not specified K21.9 ??Esophagitis presence: esophagitis presence not specified Personal history of colonic polyps Z86.010 05/04/19 1405 <Electronically signed by Dexter christine MD> Date _ Dexter Jordan MD I have re-examined the patient. There are no clinical changes since date of exam.
[2019-05-04 13:56] VITALS: BMI 29.2
[2019-05-07] VITALS (9 sets, daily range): BP systolic 66–96; BP diastolic 43–59; PULSE 58–76; RESP 15–16; TEMP 36.2–36.4; O2SAT 92–96; BMI 28.6
[2019-05-07] MEDS: Lactated Ringers 1,000 ML 100 ML IV (06:05)
[2019-05-07 06:16] LABS: Bedside Glucose 130 mg/dL (70-110)
--- NOTE | 2019-05-07 06:30 | EGD_PTH ---
PATIENT: FAUSTINO PATRICK LOC: EN U#:[id number] AGE/SX: 78/M ROOM: RE05/07/[address]: Dr. Dexter Jordan MD : 1940 BED: DIS: 05/07/2019 SPEC #: [id number] RECD: 05/07/19 08:56 STATUS: NYDIA ERIC #: [id number] LUIS: 05/07/19 06:[address]: Dexter Jordan DEPT: SURGICAL PATHOLOGY RECD BY: Eyad Prabhakar ENTERED: 05/07/19 11:30 SP TYPE: EGD BIOPSY OT DR: Dr. Luc Aranda MD Tissues: A - Gastric mucous membrane B - Esophageal mucous membrane C - Cecum, NOS D - Descending colon Procedures: Special Stain Group II Surgery Specimen Level IV Alcian Blue/PAS (control) HEADER OPERATION: Colonoscopy, EGD ([facility] [place] PRE-OP DIAGNOSIS: Gastric reflux TISSUE SUBMITTED: A - Antrum biopsy for H. pylori and path, B - Distal esophagus biopsy, C - Cecal polyp biopsy, D - Descending colon polyp biopsy MICROSCOPIC DIAGNOSIS A. Antrum, biopsy: Mild gastritis. See microscopic description and comment. B. Distal esophagus, biopsy: Fragments of gastroesophageal mucosa with focal minimal intestinal metaplasia (goblet cell metaplasia), consistent with Baldwin's esophagus. Focal moderate chronic inflammation and minimal acute inflammation. Negative for dysplasia. See comment. C. Cecal polyp, biopsy: Tubular adenoma. D. Descending colon polyp, biopsy: Tubular adenoma. SJ:mono 05/08/19 COMMENT A. The results of immunohistochemistry for Helicobacter pylori will be reported separately ([id number]). B. Alcian blue/PAS stain with matched control is used in the evaluation of the specimen. MICROSCOPIC DESCRIPTION Slides are reviewed. A. The specimen shows fragments of gastric mucosa with chronic inflammatory cell infiltrates in the lamina propria consisting of lymphocytes and plasma cells, consistent with mild chronic gastritis. GROSS DESCRIPTION A - Received in fixative is one container labeled with the patient's name and designated antrum biopsy. The specimen consists of one irregular fragment of light mishra soft tissue that measures 0.4 x 0.2 x 0.1 cm. The specimen is totally submitted in one cassette. B - Received in fixative is one container labeled with the patient's name and designated distal esophagus biopsy. The specimen consists of multiple irregular fragments of light mishra soft tissue that in aggregate measure 1.5 x 0.5 x 0.1 cm. The specimen is totally submitted in one cassette. C - Received in fixative is one container labeled with the patient's name and designated cecal polyp biopsy. The specimen consists of two irregular fragments of light mishra soft tissue that in aggregate measure 0.4 x 0.2 x 0.1 cm. The specimen is totally submitted in one cassette. D - Received in fixative is one container labeled with the patient's name and designated descending colon polyp biopsy. The specimen consists of two irregular fragments of light mishra soft tissue that in aggregate measure 0.8 x 0.3 x 0.1 cm. The specimen is totally submitted in one cassette. / SJ:rg 05/07/19 TC: CPT: 44645 x4, 40592
--- NOTE | 2019-05-07 06:30 | IMM_PTH ---
PATIENT: FAUSTINO PATRICK LOC: EN U#:[id number] AGE/SX: 78/M ROOM: RE05/07/[address]: Dr. Dexter Jordan MD : 1940 BED: DIS: 05/07/2019 SPEC #: [id number] RECD: 05/07/19 13:22 STATUS: NYDIA REPippa #: [id number] LUIS: 05/07/19 06:[address]: Dexter Jordan DEPT: IMMUNOHISTOCHEMISTRY RECD BY: Emmy Hernández ENTERED: 05/07/19 13:23 SP TYPE: IMMUNO OTHR DR: Dr. Luc Aranda MD Tissues: A - Stomach, NOS Procedures: H Pylori (initial) PHYSICIAN & INSTITUTION [place] [address] SPECIMEN INFORMATION: Tissue Source: A - Antrum biopsy Clinical Info: Gastric reflux Specimen Number: [id number] CPT code: 78674 METHODOLOGY: Deparaffinized sections of prefer/formalin-fixed tissue or PAP/DQ stained slides are incubated with monoclonal/polyclonal antibodies/oligonucleotide probes. Localization is made via biotin free immunoperoxidase method. Appropriate controls are performed and reacted as expected. Results on target cell population are indicated in the following table: RESULTS: ANTIBODY / CLONE RESULT Block A H Pylori (polyclonal) negative These tests were developed and their performance characteristics determined by [facility]. They may not have been cleared or approved by the U.S. Food and Drug Administration. The FDA has determined that such clearance or approval is not necessary. INTERPRETATION: A. Antrum biopsy: Negative for Helicobacter pylori organisms. SJ:mono 05/08/19
--- NOTE | 2019-05-07 06:53 | OP.EGD_ITS ---
Patient Name: Jorgito Melendrez Procedure Date: 05/07/2019 6:20 AM Date of : 1940 Age: 78 Procedure: Upper GI endoscopy Indications: Suspected gastro-esophageal reflux disease Providers: Dexter Jordan MD Referring MD: Luc Aranda Medicines: See the Anesthesia note for documentation of the administered medications Complications: No immediate complications. Procedure: Pre-Anesthesia Assessment: - Prior to the procedure, a History and Physical was performed, and patient medications and allergies were reviewed. The patient's tolerance of previous anesthesia was also reviewed. The risks and benefits of the procedure and the sedation options and risks were discussed with the patient. All questions were answered, and informed consent was obtained. Prior Anticoagulants: The patient has taken no previous anticoagulant or antiplatelet agents. ASA Grade Assessment: II - A patient with mild systemic disease. After reviewing the risks and benefits, the patient was deemed in satisfactory condition to undergo the procedure. After obtaining informed consent, the endoscope was passed under direct vision. Throughout the procedure, the patient's blood pressure, pulse, and oxygen saturations were monitored continuously. The gastroscope was introduced through the mouth, and advanced to the second part of duodenum. The upper GI endoscopy was accomplished without difficulty. The patient tolerated the procedure well. Scope In: 6:26:17 AM Scope Out: 6:33:55 AM Total Procedure Duration Time 0 hours 7 minutes 38 seconds Findings: A medium-sized hiatal hernia was present. There were esophageal mucosal changes suspicious for short-segment Baldwin's esophagus present in the distal esophagus. The maximum longitudinal extent of these mucosal changes was < 3 cm in length. Mucosa was biopsied with a cold forceps for histology. Diffuse mildly erythematous mucosa without bleeding was found in the gastric antrum. Biopsies were taken with a cold forceps for histology. The examined duodenum was normal. The Z-line was irregular and was found 40 cm from the incisors. Impression: - Medium-sized hiatal hernia. - Esophageal mucosal changes suspicious for short-segment Baldwin's esophagus. Biopsied. - Erythematous mucosa in the antrum. Biopsied. - Normal examined duodenum. - Z-line irregular, 40 cm from the incisors. Recommendation: - Discharge patient to home. - Resume previous diet. - Continue present medications. - Telephone my office for pathology results in 1 week. Procedure Code(s): --- Professional --- 51987, Esophagogastroduodenoscopy, flexible, transoral; with biopsy, single or multiple Diagnosis Code(s): --- Professional --- K44.9, Diaphragmatic hernia without obstruction or gangrene K22.8, Other specified diseases of esophagus K31.89, Other diseases of stomach and duodenum CPT copyright 2017 [employer]. All rights reserved. The codes documented in this report are preliminary and upon garment fitter review may be revised to meet current compliance requirements. Dexter Jordan MD 05/07/2019 6:53:31 AM This report has been signed electronically. Number of Addenda: 0 Note Initiated On: 05/07/2019 6:20 AM
--- NOTE | 2019-05-07 06:56 | OP.COLON_ITS ---
Patient Name: Jorgito Melendrez Procedure Date: 05/07/2019 6:35 AM Date of : 1940 Age: 78 Procedure: Colonoscopy Indications: High risk colon cancer surveillance: Personal history of colonic polyps Providers: Dexter Jordan MD Referring MD: Luc Aranda Medicines: See the Anesthesia note for documentation of the administered medications Patient Profile: Last Colonoscopy: May 2010. Complications: No immediate complications. Procedure: Pre-Anesthesia Assessment: - Prior to the procedure, a History and Physical was performed, and patient medications and allergies were reviewed. The patient's tolerance of previous anesthesia was also reviewed. The risks and benefits of the procedure and the sedation options and risks were discussed with the patient. All questions were answered, and informed consent was obtained. Prior Anticoagulants: The patient has taken no previous anticoagulant or antiplatelet agents. ASA Grade Assessment: II - A patient with mild systemic disease. After reviewing the risks and benefits, the patient was deemed in satisfactory condition to undergo the procedure. After I obtained informed consent, the scope was passed under direct vision. Throughout the procedure, the patient's blood pressure, pulse, and oxygen saturations were monitored continuously. The Colonoscope was introduced through the anus and advanced to the cecum, identified by appendiceal orifice and ileocecal valve. The colonoscopy was performed without difficulty. The patient tolerated the procedure well. The quality of the bowel preparation was good. The ileocecal valve was photographed. Scope In: 6:36:23 AM Scope Withdrawal Time 0 hours 7 minutes 23 seconds Scope Out: 6:48:20 AM Total Procedure Duration Time 0 hours 11 minutes 57 seconds Findings: Hemorrhoids were found on perianal exam. The digital rectal exam was abnormal. Pertinent negatives include normal prostate (size, shape, and consistency). A 5 mm polyp was found in the cecum. The polyp was sessile. The polyp was removed with a cold biopsy forceps. Resection and retrieval were complete. A 3 mm polyp was found in the descending colon. The polyp was sessile. The polyp was removed with a cold biopsy forceps. Resection and retrieval were complete. Multiple diverticula were found in the sigmoid colon and descending colon. Impression: - Hemorrhoids found on perianal exam. - Abnormal digital rectal exam. - One 5 mm polyp in the cecum, removed with a cold biopsy forceps. Resected and retrieved. - One 3 mm polyp in the descending colon, removed with a cold biopsy forceps. Resected and retrieved. - Diverticulosis in the sigmoid colon and in the descending colon. Recommendation: - Discharge patient to home. - Resume previous diet. - Continue present medications. - Repeat colonoscopy in 5 years for surveillance based on pathology results. - Telephone my office for pathology results in 1 week. Procedure Code(s): --- Professional --- 47074, Colonoscopy, flexible; with biopsy, single or multiple Diagnosis Code(s): --- Professional --- Z86.010, Personal history of colonic polyps K64.9, Unspecified hemorrhoids K62.89, Other specified diseases of anus and rectum D12.0, Benign neoplasm of cecum D12.4, Benign neoplasm of descending colon K57.30, Diverticulosis of large intestine without perforation or abscess without bleeding CPT copyright 2017 [employer]. All rights reserved. The codes documented in this report are preliminary and upon lockstitch shoulder joiner review may be revised to meet current compliance requirements. Dexter Jordan MD 05/07/2019 6:56:34 AM This report has been signed electronically. Number of Addenda: 0 Note Initiated On: 05/07/2019 6:35 AM
== END 2019-05-07 08:05 | disposition home or self-care (01) ==
LOC: EN 05:33 → AC 05:34
PROVIDERS: Family Provider Family Medicine; PCP Family Medicine; Referring Provider Family Medicine; Visit Provider Surgery
PROC: 0DJD8ZZ Inspection of Lower Intestinal Tract, Via Natural or Artificial Opening Endoscopic (ICD-10-PCS; CPT 45378; principal; 2019-05-07 06:25)
DX: K21.9 Gastro-esophageal reflux disease without esophagitis (principal); K22.70 Barrett's esophagus without dysplasia; K29.70 Gastritis, unspecified, without bleeding; K44.9 Diaphragmatic hernia without obstruction or gangrene; K64.9 Unspecified hemorrhoids; K62.89 Other specified diseases of anus and rectum; D12.0 Benign neoplasm of cecum; D12.4 Benign neoplasm of descending colon; K57.30 Diverticulosis of large intestine without perforation or abscess without bleeding; Z86.010 Personal history of colon polyps; I10 Essential (primary) hypertension; E78.00 Pure hypercholesterolemia, unspecified; E11.9 Type 2 diabetes mellitus without complications; E66.9 Obesity, unspecified; Z68.29 Body mass index [BMI] 29.0-29.9, adult; Z79.84 Long term (current) use of oral hypoglycemic drugs; Z79.899 Other long term (current) drug therapy; Z87.891 Personal history of nicotine dependence
CPT/HCPCS: 43239; 45380; 82962; 88305; 88313; 88342; J7120; J2405

== ENCOUNTER → 2019-06-29 10:14 | Outpatient (CLI) | payer MEDICARE, SELFPAY ==
[2019-05-07 05:57] VITALS: BMI 28.6
[2019-06-29 13:02] LABS: Absolute Lymphocyte Count 2.04 X10^3/uL (0.83-4.51); Absolute Neutrophil Count 3.5 X10^3/uL (2.0-7.7); Basophil# 0.05 X10^3/uL; Basophil% 0.8 % (0-1); Eosinophil# 0.15 X10^3/uL; Eosinophils% 2.3 % (0-5); Hematocrit 43.1 % (40-54); Hemoglobin 13.9 g/dL (13.0-16.5); Lymphocyte # 2.04 X10^3/ul (4.0); Lymphocyte % 31.4 % (19-41); Mean Corp Hgb Conc 32.3 g/dL (32-36); Mean Corpuscular Hgb 29.4 pg (27.0-32.0); Mean Corpuscular Volume 91.1 fL (80-94); Monocyte# 0.72 X10^3/uL; Monocyte% 11.1 % (0-10); NRBC Flagged by Analyzer 0 % (0-5); Neutrophil % 53.9 % (47-70); Platelet Count 221 K/mm3 (150-450); RBC Distribution Width SD 43.5 fl (35.1-43.9); Red Blood Count 4.73 M/mm3 (4.6-6.2); White Blood Count 6.5 K/mm3 (4.4-11.0)
[2019-06-29 13:27] LABS: Vitamin D,25 Hydroxy 21.3 ng/mL (29.95-100.01)
[2019-06-29 14:38] LABS: AST(SGOT) 21 U/L (15-37); Alanine Aminotransfer ALT/SGPT 34 U/L (16-61); Albumin, Serum 3.7 g/dL (3.2-5.0); Alkaline Phosphatase 65 U/L (45-117); Anion Gap 8 (5-15); BUN 26 mg/dL (7-18); BUN/Creat Ratio 18.1 RATIO (10-20); Calcium,Total 9.2 mg/dL (8.5-10.1); Chloride 106 mmol/L (98-107); Cholesterol 141 mg/dL (200); Creatinine, Serum 1.44 mg/dL (0.70-1.30); EST Glomerular Filtration Rate 51 mL/min (>60); Est Glom Filt Rate - Afr Amer 61 mL/min (>60); Globulin 3.6 g/dL (2.2-4.2); Glucose 157 mg/dL (74-106); High Density Lipoprotein 33 mg/dL; Phosphorus 3.4 mg/dL (2.5-4.9); Potassium 3.8 mmol/L (3.5-5.1); Protein, Total 7.3 g/dL (6.4-8.2); Sodium Level 138 mmol/L (136-145); Triglycerides 138 mg/dL; Very Low Density Lipoprotein 28 mg/dL (5-40)
[2019-06-29 14:40] LABS: Microalbumin,Random Urine 39.6 mg/L (NO RANGE EST.); Microalbumin:Creatinine Ratio 30.7 mg/g CRE (<30 mg/g CRE)
== END ==
LOC: MFPLAB 10:14
PROVIDERS: Family Provider Family Medicine; PCP Family Medicine; Referring Provider Family Medicine; Visit Provider Family Medicine
DX: I10 Essential (primary) hypertension (principal); E11.9 Type 2 diabetes mellitus without complications; E78.5 Hyperlipidemia, unspecified; M85.80 Other specified disorders of bone density and structure, unspecified site; E55.9 Vitamin D deficiency, unspecified
CPT/HCPCS: 36415; 80053; 80061; 82043; 82306; 82570; 83036; 84100; 85025

== ENCOUNTER → 2019-10-28 11:28 | Outpatient (CLI) | payer MEDICARE, SELFPAY ==
[2019-05-07 05:57] VITALS: BMI 28.6
[2019-10-28 15:24] LABS: Absolute Lymphocyte Count 2.36 X10^3/uL (0.83-4.51); Absolute Neutrophil Count 4.5 X10^3/uL (2.0-7.7); Basophil# 0.05 X10^3/uL; Basophil% 0.6 % (0-1); Eosinophil# 0.14 X10^3/uL; Eosinophils% 1.8 % (0-5); Hematocrit 41.7 % (40-54); Hemoglobin 13.7 g/dL (13.0-16.5); Lymphocyte # 2.36 X10^3/ul (4.0); Lymphocyte % 29.9 % (19-41); Mean Corp Hgb Conc 32.9 g/dL (32-36); Mean Corpuscular Hgb 29.7 pg (27.0-32.0); Mean Corpuscular Volume 90.5 fL (80-94); Mean Platelet Vol. 10.4 fl (6.2-12.0); Monocyte# 0.83 X10^3/uL; Monocyte% 10.5 % (0-10); NRBC Flagged by Analyzer 0 % (0-5); Neutrophil # 4.47 X10^3/uL (2.7-7.7); Neutrophil % 56.8 % (47-70); Platelet Count 206 K/mm3 (150-450); RBC Distribution Width CV 13.2 % (11.6-14.6); RBC Distribution Width SD 43.3 fl (35.1-43.9); Red Blood Count 4.61 M/mm3 (4.6-6.2); White Blood Count 7.9 K/mm3 (4.4-11.0)
[2019-10-28 15:41] LABS: AST(SGOT) 18 U/L (15-37); Alanine Aminotransfer ALT/SGPT 30 U/L (16-61); Albumin, Serum 3.7 g/dL (3.2-5.0); Alkaline Phosphatase 71 U/L (45-117); Anion Gap 6 (5-15); BUN 32 mg/dL (7-18); BUN/Creat Ratio 21.3 RATIO (10-20); Calcium,Total 9.7 mg/dL (8.5-10.1); Chloride 106 mmol/L (98-107); Cholesterol 138 mg/dL (200); EST Glomerular Filtration Rate 48 mL/min (>60); Est Glom Filt Rate - Afr Amer 58 mL/min (>60); Globulin 3.7 g/dL (2.2-4.2); Glucose 132 mg/dL (74-106); High Density Lipoprotein 23 mg/dL; Phosphorus 3.7 mg/dL (2.5-4.9); Potassium 4.3 mmol/L (3.5-5.1); Protein, Total 7.4 g/dL (6.4-8.2); Sodium Level 140 mmol/L (136-145); Triglycerides 139 mg/dL; Very Low Density Lipoprotein 28 mg/dL (5-40); Vitamin D,25 Hydroxy 38.6 ng/mL
[2019-10-28 15:45] LABS: Hemoglobin A1c 7.4 % (4.2-6.3)
== END ==
PROVIDERS: PCP Family Medicine; Visit Provider Family Medicine
DX: I10 Essential (primary) hypertension (principal); E11.9 Type 2 diabetes mellitus without complications; E78.5 Hyperlipidemia, unspecified; M85.80 Other specified disorders of bone density and structure, unspecified site; E55.9 Vitamin D deficiency, unspecified
CPT/HCPCS: 36415; 80053; 80061; 82306; 83036; 84100; 85025

== ENCOUNTER → 2020-02-29 16:07 | Outpatient (CLI) | payer MEDICARE, SELFPAY ==
[2019-05-07 05:57] VITALS: BMI 28.6
[2020-02-29 17:53] LABS: Absolute Neutrophil Count 2.3 X10^3/uL (2.0-7.7); Basophil# 0.03 X10^3/uL; Basophil% 0.7 % (0-1); Eosinophil# 0.08 X10^3/uL; Eosinophils% 1.8 % (0-5); Hematocrit 43.7 % (40-54); Hemoglobin 14.5 g/dL (13.0-16.5); Lymphocyte % 22.2 % (19-41); Mean Corp Hgb Conc 33.2 g/dL (32-36); Mean Corpuscular Hgb 30.3 pg (27.0-32.0); Mean Corpuscular Volume 91.4 fL (80-94); Mean Platelet Vol. 10.3 fl (6.2-12.0); Monocyte# 1.04 X10^3/uL; Monocyte% 23.1 % (0-10); NRBC Flagged by Analyzer 0 % (0-5); Neutrophil # 2.32 X10^3/uL (2.7-7.7); Neutrophil % 51.5 % (47-70); Platelet Count 189 K/mm3 (150-450); RBC Distribution Width CV 12.9 % (11.6-14.6); RBC Distribution Width SD 43.3 fl (35.1-43.9); Red Blood Count 4.78 M/mm3 (4.6-6.2); White Blood Count 4.5 K/mm3 (4.4-11.0)
[2020-02-29 18:29] LABS: Vitamin D,25 Hydroxy 37.5 ng/mL
[2020-02-29 18:34] LABS: ALB/GLOB Ratio 0.9 RATIO (0.9-2.4); AST(SGOT) 25 U/L (15-37); Alanine Aminotransfer ALT/SGPT 40 U/L (16-61); Albumin, Serum 3.6 g/dL (3.2-5.0); Alkaline Phosphatase 73 U/L (45-117); Anion Gap 4 (5-15); BUN 21 mg/dL (7-18); BUN/Creat Ratio 15.4 RATIO (10-20); Calcium,Total 9.2 mg/dL (8.5-10.1); Chloride 105 mmol/L (98-107); Cholesterol 153 mg/dL (200); Creatinine, Serum 1.36 mg/dL (0.70-1.30); EST Glomerular Filtration Rate 54 mL/min (>60); Est Glom Filt Rate - Afr Amer 65 mL/min (>60); Glucose 167 mg/dL (74-106); High Density Lipoprotein 32 mg/dL; Potassium 4.1 mmol/L (3.5-5.1); Protein, Total 7.6 g/dL (6.4-8.2); Sodium Level 137 mmol/L (136-145); Triglycerides 140 mg/dL; Very Low Density Lipoprotein 28 mg/dL (5-40)
[2020-02-29 18:58] LABS: Microalbumin:Creatinine Ratio 24.5 mg/g CRE (<30 mg/g CRE)
[2020-02-29 19:02] LABS: Hemoglobin A1c 7.3 % (3.8-5.6)
== END ==
LOC: MFPLAB 16:08
PROVIDERS: PCP Family Medicine; Referring Provider Family Medicine; Visit Provider Family Medicine
DX: E78.5 Hyperlipidemia, unspecified (principal); I10 Essential (primary) hypertension; E11.9 Type 2 diabetes mellitus without complications; E55.9 Vitamin D deficiency, unspecified
CPT/HCPCS: 36415; 80053; 80061; 82043; 82306; 82570; 83036; 85025

== ENCOUNTER → 2020-03-09 16:50 | Outpatient (CLI) | payer MEDICARE, SELFPAY ==
[2019-05-07 05:57] VITALS: BMI 28.6
--- NOTE | 2020-03-09 16:55 | RAD_ITS ---
STUDY: X-RAY CHEST REASON FOR EXAM: Male, 79 years old. acute bronchitis TECHNIQUE: Frontal and lateral views of the chest. COMPARISON: None. FINDINGS: The lungs are hyperexpanded. There are coarsened interstitial markings suggestive of mild chronic fibrosis, especially in the lower lung nicolas. No gross focal infiltrates. No gross effusions. Normal size heart. Normal mediastinum and adán. Normal visualized pulmonary arteries. There is atherosclerotic calcification of the aortic arch with tortuosity. Normal visualized thoracic spine. Normal visualized ribs, clavicles, and shoulders. There is no demonstrated abnormality of the visualized soft tissue structures of the upper abdomen. RAD/Chest PA and Lateral IMPRESSION: There are findings consistent with COPD. There is no evidence of acute chest disease. Electronically Signed: Amauri Chacon MD at 23:59 EDT , Service support ,
== END ==
PROVIDERS: PCP Family Medicine; Referring Provider Family Medicine; Visit Provider Family Medicine
DX: J20.9 Acute bronchitis, unspecified (principal)
CPT/HCPCS: 71046; 87635; U0003

== ENCOUNTER → 2020-06-27 15:41 | Outpatient (CLI) | payer MEDICARE, SELFPAY ==
[2019-05-07 05:57] VITALS: BMI 28.6
[2020-06-27 15:50] LABS: Bacteria 0 SEEN /hpf (None Seen); Mucous, Urine 0 SEEN /hpf (<or=2+); Red Blood Cells-Urine 0 SEEN /hpf (0-5); Squamous Epithelial Cells - UA 0 SEEN /hpf (0-5); White Blood Cells 0 SEEN /hpf (0-5)
[2020-06-27 18:03] LABS: Color, Urine Yellow (Yellow); Glucose, Dipstick Normal (Normal); Ketone-Dipstick Negative (Negative); Leukocyte Esterase-Dipstick Negative /ul (Negative); Nitrite-Dipstick Negative (Negative); Occult Blood-Urine Negative /ul (Negative); Protein-Dipstick Negative (Negative); Specific Gravity, Urine 1.015 (1.002-1.030); Urine Bilirubin Dipstick Negative (Negative); Urine Clarity Clear (Clear); Urine Urobilinogen Normal (Normal); Urine pH 6.5 (5.0 - 8.0)
[2020-06-27 18:05] LABS: Absolute Neutrophil Count 3.9 X10^3/uL (2.0-7.7); Basophil# 0.04 X10^3/uL; Basophil% 0.6 % (0-1); Eosinophil# 0.16 X10^3/uL; Eosinophils% 2.5 % (0-5); Hematocrit 40.7 % (40-54); Hemoglobin 13.4 g/dL (13.0-16.5); Lymphocyte % 26.4 % (19-41); Mean Corp Hgb Conc 32.9 g/dL (32-36); Mean Corpuscular Volume 91.1 fL (80-94); Mean Platelet Vol. 10.2 fl (6.2-12.0); Monocyte# 0.66 X10^3/uL; Monocyte% 10.3 % (0-10); NRBC Flagged by Analyzer 0 % (0-5); Neutrophil # 3.85 X10^3/uL (2.7-7.7); Neutrophil % 59.9 % (47-70); Platelet Count 196 K/mm3 (150-450); RBC Distribution Width CV 13.2 % (11.6-14.6); RBC Distribution Width SD 43.8 fl (35.1-43.9); Red Blood Count 4.47 M/mm3 (4.6-6.2); White Blood Count 6.4 K/mm3 (4.4-11.0)
[2020-06-27 18:24] LABS: Hemoglobin A1c 6.8 % (3.8-5.6)
[2020-06-27 18:30] LABS: Protein, Urine (Random) 10.3 mg/dL (<11.9); Protein:Creat Ratio 94 mg/g CRE (0-200)
[2020-06-27 18:32] LABS: AST(SGOT) 14 U/L (15-37); Alanine Aminotransfer ALT/SGPT 25 U/L (16-61); Albumin, Serum 3.4 g/dL (3.2-5.0); Alkaline Phosphatase 57 U/L (45-117); Anion Gap 6 (5-15); BUN 24 mg/dL (7-18); BUN/Creat Ratio 21.1 RATIO (10-20); Calcium,Total 8.5 mg/dL (8.5-10.1); Chloride 105 mmol/L (98-107); Cholesterol 138 mg/dL (200); Creatinine, Serum 1.14 mg/dL (0.70-1.30); EST Glomerular Filtration Rate 66 mL/min (>60); Est Glom Filt Rate - Afr Amer 80 mL/min (>60); Globulin 3.4 g/dL (2.2-4.2); Glucose 144 mg/dL (74-106); High Density Lipoprotein 33 mg/dL; Phosphorus 2.9 mg/dL (2.5-4.9); Potassium 3.6 mmol/L (3.5-5.1); Protein, Total 6.8 g/dL (6.4-8.2); Sodium Level 138 mmol/L (136-145); Triglycerides 120 mg/dL; Very Low Density Lipoprotein 24 mg/dL (5-40)
[2020-06-28 11:33] LABS: PTHIN 82.3 pg/mL (18.4-80.1)
== END ==
PROVIDERS: PCP Family Medicine; Referring Provider Family Medicine; Visit Provider Family Medicine
DX: M85.80 Other specified disorders of bone density and structure, unspecified site (principal); E11.22 Type 2 diabetes mellitus with diabetic chronic kidney disease; E78.5 Hyperlipidemia, unspecified; N18.30 Chronic kidney disease, stage 3 unspecified
CPT/HCPCS: 36415; 80053; 80061; 81001; 82306; 82570; 83036; 83970; 84100; 84156; 85025

== ENCOUNTER 2020-08-25 07:37 | Outpatient (RCR) | payer MEDICARE, SELFPAY ==
[2019-05-07 05:57] VITALS: BMI 28.6
[2020-08-25] MEDS: COVID-19 VACC, MRNA(PFIZER)/PF 30 MCG/0.3 ML SYRINGE IM (15:37)
[2020-09-15] MEDS: COVID-19 VACC, MRNA(PFIZER)/PF 30 MCG/0.3 ML SYRINGE IM (15:03)
== END 2020-11-22 23:59 ==
LOC: IMMUN 07:37
PROVIDERS: PCP Family Medicine; Referring Provider Family Medicine; Visit Provider Family Medicine
DX: Z23 Encounter for immunization (principal)
CPT/HCPCS: 0001A; 0002A; 91300

== ENCOUNTER → 2020-10-21 15:57 | Outpatient (CLI) | payer MEDICARE, SELFPAY ==
[2019-05-07 05:57] VITALS: BMI 28.6
[2020-10-21 17:32] LABS: Absolute Lymphocyte Count 2.02 X10^3/uL (0.83-4.51); Absolute Neutrophil Count 3.5 X10^3/uL (2.0-7.7); Basophil# 0.03 X10^3/uL; Basophil% 0.5 % (0-1); Eosinophil# 0.15 X10^3/uL; Eosinophils% 2.4 % (0-5); Hematocrit 42.3 % (40-54); Hemoglobin 13.8 g/dL (13.0-16.5); Lymphocyte # 2.02 X10^3/ul (0.83-4.51); Lymphocyte % 31.7 % (19-41); Mean Corp Hgb Conc 32.6 g/dL (32-36); Mean Corpuscular Hgb 29.9 pg (27.0-32.0); Mean Corpuscular Volume 91.8 fL (80-94); Mean Platelet Vol. 10.4 fl (6.2-12.0); Monocyte# 0.61 X10^3/uL; Monocyte% 9.6 % (0-10); NRBC Flagged by Analyzer 0 % (0-5); Neutrophil # 3.54 X10^3/uL (2.7-7.7); Neutrophil % 55.3 % (47-70); Platelet Count 217 K/mm3 (150-450); Red Blood Count 4.61 M/mm3 (4.6-6.2); White Blood Count 6.4 K/mm3 (4.4-11.0)
[2020-10-21 18:19] LABS: AST(SGOT) 17 U/L (15-37); Alanine Aminotransfer ALT/SGPT 28 U/L (16-61); Albumin, Serum 3.6 g/dL (3.2-5.0); Alkaline Phosphatase 64 U/L (45-117); Anion Gap 7 (5-15); BUN 32 mg/dL (7-18); BUN/Creat Ratio 23.7 RATIO (10-20); Calcium,Total 8.7 mg/dL (8.5-10.1); Chloride 105 mmol/L (98-107); Cholesterol 153 mg/dL (200); Creatinine, Serum 1.35 mg/dL (0.70-1.30); EST Glomerular Filtration Rate 54 mL/min (>60); Est Glom Filt Rate - Afr Amer 66 mL/min (>60); Globulin 3.7 g/dL (2.2-4.2); Glucose 167 mg/dL (74-106); High Density Lipoprotein 34 mg/dL; Potassium 3.7 mmol/L (3.5-5.1); Protein, Total 7.3 g/dL (6.4-8.2); Sodium Level 139 mmol/L (136-145); Triglycerides 146 mg/dL; Very Low Density Lipoprotein 29 mg/dL (5-40)
[2020-10-21 18:20] LABS: Vitamin D,25 Hydroxy 38.6 ng/mL
[2020-10-21 18:22] LABS: Hemoglobin A1c 6.9 % (3.8-5.6)
[2020-10-24 08:01] LABS: PTHIN 63.1 pg/mL (18.4-80.1)
== END ==
PROVIDERS: PCP Family Medicine; Referring Provider Family Medicine; Visit Provider Family Medicine
DX: I10 Essential (primary) hypertension (principal); E11.9 Type 2 diabetes mellitus without complications; E78.5 Hyperlipidemia, unspecified; E55.9 Vitamin D deficiency, unspecified; N25.81 Secondary hyperparathyroidism of renal origin
CPT/HCPCS: 36415; 80053; 80061; 82306; 83036; 83970; 85025

== ENCOUNTER → 2021-02-06 13:46 | Outpatient (CLI) | payer MEDICARE, SELFPAY | PROVIDERS: PCP Family Medicine; Referring Provider Family Medicine; Visit Provider Family Medicine | DX: Z00.00 Encounter for general adult medical examination without abnormal findings (principal) ==

== ENCOUNTER → 2021-02-16 13:23 | Outpatient (CLI) | payer MEDICARE, SELFPAY ==
--- NOTE | 2021-02-16 13:32 | ECHOD_ITS ---
Reason For Study: MURMUR Procedure This was a 2D Doppler, Color Flow transthoracic echocardiogram. Exam performed in department. Left Ventricle Normal LV size. The estimated ejection fraction is 55 %. Normal diastology for age. No regional wall motion abnormalities noted. Right Ventricle Normal RV size. Normal systolic function. Atria The left atrium is mildly enlarged. Normal right atrium. No doppler evidence for ASD. Mitral Valve There is no mitral valve stenosis. Trivial mitral valve insufficiency. Tricuspid Valve There is no tricuspid stenosis. Trivial tricuspid valve insufficiency. Pulmonary artery systolic pressure is 30 mmHg. Aortic Valve Moderate diffuse aortic valve thickening. Moderate aortic stenosis. Trivial aortic valve insufficiency. Pulmonic Valve There is no pulmonic valvular stenosis. No pulmonic valve insufficiency. Great Vessels Normal aortic root. Pericardium/Pleural No pericardial effusion. MMode/2D Measurements & Calculations LVIDd: 4.9 cm IVSd: 1.1 cm LVOT diam: 2.1 cm LVIDs: 3.3 cm LVPWd: 1.1 cm LVOT area: 3.4 cm2 RVDd: 3.9 cm FS: 32.3 % Ao root diam: 3.7 cm LAV(MOD-bp): 72.0 ml LA A4 area: 21.9 cm2 LAV(MOD-bp) Indexed: 33.5 ml/m2 LAV(MOD-sp2): 70.0 ml LAV(MOD-sp4): 70.7 ml LA dimension(2D): 4.2 cm RA A4 area: 14.8 cm2 Time Measurements MV dec time: 0.25 sec Doppler Measurements & Calculations MV E max wilfrid: 62.7 cm/sec Lat Peak E' Wilfrid: 7.4 cm/sec Med Peak E' Wilfrid: 5.6 cm/sec MV A max wilfrid: 79.0 cm/sec E/E' lat: 8.5 E/E' med: 11.3 MV E/A: 0.79 Ao V2 max: 324.5 cm/sec AI max wilfrid: 427.1 cm/sec LV V1 max: 94.4 cm/sec Ao max P.2 mmHg AI max P.1 mmHg LV V1 max P.6 mmHg Ao V2 mean: 251.1 cm/sec AI dec slope: 214.7 cm/sec2 LV V1 mean P.1 mmHg Ao mean P.8 mmHg AI P1/2t: 582.8 msec LV V1 mean: 68.8 cm/sec Ao V2 VTI: 79.7 cm LV V1 VTI: 23.5 cm MADDI(I,D): 1.0 cm2 MADDI(V,D): 1.00 cm2 SV(LVOT): 80.6 ml PA V2 max: 181.2 cm/sec TR max wilfrid: 258.1 cm/sec PA V2 mean: 120.5 cm/sec TR max P.6 mmHg PA V2 VTI: 37.5 cm ECHO/Echo Complete Interpretation Summary The estimated ejection fraction is 55 %. Moderate aortic stenosis. Trivial aortic valve insufficiency. Trivial mitral valve insufficiency. Ordering Physician: Luc Aranda Referring Physician: Luc Aranda Performed By: dIalia Alexander, SHIVA, RVT
== END ==
PROVIDERS: PCP Family Medicine; Referring Provider Family Medicine; Visit Provider Family Medicine
DX: R01.1 Cardiac murmur, unspecified (principal)
CPT/HCPCS: 93306

== ENCOUNTER 2021-03-01 06:37 | Emergency (ER) | payer MEDICARE, SELFPAY ==
[2021-03-01 06:38] VITALS: BP 98/74; PULSE 81; RESP 18; TEMP 37; O2SAT 97; BMI 30.8
[2021-03-01] MEDS: Diphth,Pertuss(Acell),Tet Vac 0.5 ML Vial IM (06:48)
[2021-03-01 06:56] LABS: Hematocrit 39.9 % (40-54); Hemoglobin 13.1 g/dL (13.0-16.5); Mean Corp Hgb Conc 32.8 g/dL (32-36); Mean Corpuscular Hgb 30.3 pg (27.0-32.0); Mean Corpuscular Volume 92.1 fL (80-94); Mean Platelet Vol. 9.9 fl (6.2-12.0); Platelet Count 223 K/mm3 (150-450); RBC Distribution Width CV 12.6 % (11.6-14.6); RBC Distribution Width SD 42.9 fl (35.1-43.9); Red Blood Count 4.33 M/mm3 (4.6-6.2); White Blood Count 7.5 K/mm3 (4.4-11.0)
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
[2021-03-01] MEDS: Lidocaine 1% /Epi 1:100 (20ml) 20 ML Vial INFILT (07:12)
== END 2021-03-01 07:37 | disposition home or self-care (01) ==
PROVIDERS: Emergency Provider Emergency Medicine; PCP Family Medicine
DX: S41.112A Laceration without foreign body of left upper arm, initial encounter (principal); I10 Essential (primary) hypertension; E78.00 Pure hypercholesterolemia, unspecified; K21.9 Gastro-esophageal reflux disease without esophagitis; Z87.891 Personal history of nicotine dependence; Z87.19 Personal history of other diseases of the digestive system; Z79.899 Other long term (current) drug therapy; X58.XXXA Exposure to other specified factors, initial encounter
CPT/HCPCS: 12002; 85027; 90715; 96372; 99283

== ENCOUNTER → 2021-05-02 14:17 | Outpatient (CLI) | payer MEDICARE, SELFPAY ==
[2021-05-02 14:21] LABS: Bacteria 0 SEEN /hpf (None Seen); Mucous, Urine 0 SEEN /hpf (<or=2+); Red Blood Cells-Urine 0 SEEN /hpf (0-5); White Blood Cells 0 SEEN /hpf (0-5)
[2021-05-02 17:41] LABS: Color, Urine Yellow (Yellow); Glucose, Dipstick Normal (Normal); Ketone-Dipstick Negative (Negative); Leukocyte Esterase-Dipstick Negative /ul (Negative); Nitrite-Dipstick Negative (Negative); Occult Blood-Urine Negative /ul (Negative); Protein-Dipstick Negative (Negative); Specific Gravity, Urine 1.015 (1.002-1.030); Urine Bilirubin Dipstick Negative (Negative); Urine Clarity Clear (Clear); Urine Urobilinogen Normal (Normal)
[2021-05-02 17:48] LABS: Absolute Lymphocyte Count 1.84 X10^3/uL (0.83-4.51); Absolute Neutrophil Count 3.9 X10^3/uL (2.0-7.7); Basophil# 0.04 X10^3/uL; Basophil% 0.6 % (0-1); Eosinophil# 0.15 X10^3/uL; Eosinophils% 2.3 % (0-5); Hematocrit 40.5 % (40-54); Hemoglobin 13.2 g/dL (13.0-16.5); Lymphocyte # 1.84 X10^3/ul (0.83-4.51); Lymphocyte % 27.7 % (19-41); Mean Corp Hgb Conc 32.6 g/dL (32-36); Mean Corpuscular Hgb 29.8 pg (27.0-32.0); Mean Corpuscular Volume 91.4 fL (80-94); Mean Platelet Vol. 10.6 fl (6.2-12.0); Monocyte# 0.71 X10^3/uL; Monocyte% 10.7 % (0-10); NRBC Flagged by Analyzer 0 % (0-5); Neutrophil # 3.87 X10^3/uL (2.7-7.7); Neutrophil % 58.1 % (47-70); Platelet Count 179 K/mm3 (150-450); RBC Distribution Width CV 12.5 % (11.6-14.6); RBC Distribution Width SD 41.7 fl (35.1-43.9); Red Blood Count 4.43 M/mm3 (4.6-6.2); White Blood Count 6.7 K/mm3 (4.4-11.0)
[2021-05-02 17:53] LABS: Squamous Epithelial Cells - UA 0-5 SEEN /hpf (0-5)
[2021-05-02 17:56] LABS: ALB/GLOB Ratio 0.8 RATIO (0.9-2.4); AST(SGOT) 14 U/L (15-37); Alanine Aminotransfer ALT/SGPT 31 U/L (16-61); Albumin, Serum 3.3 g/dL (3.2-5.0); Alkaline Phosphatase 62 U/L (45-117); Anion Gap 7 (5-15); BUN 23 mg/dL (7-18); BUN/Creat Ratio 18.4 RATIO (10-20); Calcium,Total 8.8 mg/dL (8.5-10.1); Chloride 102 mmol/L (98-107); Cholesterol 144 mg/dL (200); Creatinine, Serum 1.25 mg/dL (0.70-1.30); EST Glomerular Filtration Rate 59 mL/min (>60); Est Glom Filt Rate - Afr Amer 72 mL/min (>60); Globulin 3.9 g/dL (2.2-4.2); Glucose 147 mg/dL (74-106); High Density Lipoprotein 31 mg/dL; Phosphorus 2.9 mg/dL (2.5-4.9); Potassium 3.8 mmol/L (3.5-5.1); Protein, Total 7.2 g/dL (6.4-8.2); Sodium Level 136 mmol/L (136-145); Triglycerides 152 mg/dL; Very Low Density Lipoprotein 30 mg/dL (5-40)
[2021-05-02 17:59] LABS: Vitamin D,25 Hydroxy 34.6 ng/mL
[2021-05-02 18:06] LABS: Protein, Urine (Random) 9.2 mg/dL (<11.9); Protein:Creat Ratio 79 mg/g CRE (0-200)
[2021-05-02 18:16] LABS: Microalbumin,Random Urine 13.6 mg/L (NO RANGE EST.); Microalbumin:Creatinine Ratio 12.1 mg/g CRE (<30 mg/g CRE)
== END ==
LOC: MFPLAB 14:18
PROVIDERS: PCP Family Medicine; Referring Provider Family Medicine; Visit Provider Family Medicine
DX: M85.80 Other specified disorders of bone density and structure, unspecified site (principal); E11.22 Type 2 diabetes mellitus with diabetic chronic kidney disease; N18.30 Chronic kidney disease, stage 3 unspecified
CPT/HCPCS: 36415; 80053; 80061; 81001; 82043; 82306; 82570; 83036; 83970; 84100; 84156; 85025

== ENCOUNTER 2021-06-23 17:41 | Outpatient (CLI) | payer MEDICARE, SELFPAY | END 2021-06-23 23:59 | disposition short-term general hospital (02) | PROVIDERS: PCP Family Medicine; Visit Provider Registered Nurse | DX: Z20.822 Contact with and (suspected) exposure to COVID-19 (principal) | CPT/HCPCS: 87635; U0003; U0005 ==

== ENCOUNTER 2021-08-28 16:07 | Outpatient (CLI) | payer MEDICARE, SELFPAY ==
[2021-08-28 17:44] LABS: Absolute Neutrophil Count 4.3 X10^3/uL (2.0-7.7); Basophil# 0.04 X10^3/uL; Basophil% 0.6 % (0-1); Eosinophil# 0.08 X10^3/uL; Eosinophils% 1.2 % (0-5); Hematocrit 41.3 % (40-54); Hemoglobin 14.2 g/dL (13.0-16.5); Mean Corp Hgb Conc 34.4 g/dL (32-36); Mean Corpuscular Hgb 30.8 pg (27.0-32.0); Mean Corpuscular Volume 89.6 fL (80-94); NRBC Flagged by Analyzer 0 % (0-5); Neutrophil # 4.31 X10^3/uL (2.7-7.7); Neutrophil % 64.6 % (47-70); Platelet Count 227 K/mm3 (150-450); RBC Distribution Width CV 13.4 % (11.6-14.6); RBC Distribution Width SD 43.8 fl (35.1-43.9); Red Blood Count 4.61 M/mm3 (4.6-6.2); White Blood Count 6.7 K/mm3 (4.4-11.0)
[2021-08-28 18:13] LABS: Microalbumin,Random Urine 31.7 mg/L (NO RANGE EST.); Microalbumin:Creatinine Ratio 23.8 mg/g CRE (<30 mg/g CRE)
[2021-08-28 18:15] LABS: AST(SGOT) 24 U/L (15-37); Alanine Aminotransfer ALT/SGPT 36 U/L (16-61); Albumin, Serum 3.8 g/dL (3.2-5.0); Alkaline Phosphatase 63 U/L (45-117); Anion Gap 5 (5-15); BUN 21 mg/dL (7-18); BUN/Creat Ratio 14.9 RATIO (10-20); Calcium,Total 9.1 mg/dL (8.5-10.1); Chloride 103 mmol/L (98-107); Cholesterol 133 mg/dL (200); Creatinine, Serum 1.41 mg/dL (0.70-1.30); EST Glomerular Filtration Rate 51 mL/min (>60); Est Glom Filt Rate - Afr Amer 62 mL/min (>60); Globulin 3.7 g/dL (2.2-4.2); Glucose 174 mg/dL (74-106); Hemoglobin A1c 8.3 % (3.8-5.6); High Density Lipoprotein 33 mg/dL; Protein, Total 7.5 g/dL (6.4-8.2); Sodium Level 137 mmol/L (136-145); Triglycerides 154 mg/dL; Very Low Density Lipoprotein 31 mg/dL (5-40)
[2021-08-28 18:48] LABS: Vitamin D,25 Hydroxy 42.8 ng/mL
== END 2021-08-28 23:59 | disposition home or self-care (01) ==
LOC: MFPLAB 16:08
PROVIDERS: PCP Family Medicine; Visit Provider Family Medicine
DX: E11.59 Type 2 diabetes mellitus with other circulatory complications (principal); M85.80 Other specified disorders of bone density and structure, unspecified site
CPT/HCPCS: 36415; 80053; 80061; 82043; 82306; 82570; 83036; 85025

== ENCOUNTER → 2021-11-27 | Outpatient (CLI) | payer MEDICARE, SELFPAY ==
[2021-11-27 15:34] LABS: Mucous, Urine 0 SEEN /hpf (<or=2+); Red Blood Cells-Urine 0 SEEN /hpf (0-5)
[2021-11-27 17:42] LABS: Absolute Lymphocyte Count 1.55 X10^3/uL (0.83-4.51); Absolute Neutrophil Count 4.9 X10^3/uL (2.0-7.7); Basophil# 0.03 X10^3/uL; Basophil% 0.4 % (0-1); Eosinophil# 0.11 X10^3/uL; Eosinophils% 1.5 % (0-5); Hematocrit 42.1 % (40-54); Hemoglobin 13.8 g/dL (13.0-16.5); Lymphocyte # 1.55 X10^3/ul (0.83-4.51); Lymphocyte % 21.5 % (19-41); Mean Corp Hgb Conc 32.8 g/dL (32-36); Mean Corpuscular Hgb 29.9 pg (27.0-32.0); Mean Corpuscular Volume 91.1 fL (80-94); Mean Platelet Vol. 10.3 fl (6.2-12.0); Monocyte# 0.63 X10^3/uL; Monocyte% 8.8 % (0-10); NRBC Flagged by Analyzer 0 % (0-5); Neutrophil # 4.85 X10^3/uL (2.7-7.7); Neutrophil % 67.4 % (47-70); Platelet Count 209 K/mm3 (150-450); RBC Distribution Width CV 12.5 % (11.6-14.6); RBC Distribution Width SD 41.1 fl (35.1-43.9); Red Blood Count 4.62 M/mm3 (4.6-6.2); White Blood Count 7.2 K/mm3 (4.4-11.0)
[2021-11-27 17:50] LABS: Protein, Urine (Random) 16.5 mg/dL (<11.9); Protein:Creat Ratio 110 mg/g CRE (0-200)
[2021-11-27 17:57] LABS: Color, Urine Yellow (Yellow); Glucose, Dipstick Normal (Normal); Ketone-Dipstick Negative (Negative); Leukocyte Esterase-Dipstick Negative /ul (Negative); Nitrite-Dipstick Negative (Negative); Occult Blood-Urine Negative /ul (Negative); Protein-Dipstick 15 mg/dl (Negative); Urine Bilirubin Dipstick Negative (Negative); Urine Clarity Clear (Clear); Urine Urobilinogen Normal (Normal)
[2021-11-27 18:06] LABS: ALB/GLOB Ratio 0.9 RATIO (0.9-2.4); AST(SGOT) 14 U/L (15-37); Alanine Aminotransfer ALT/SGPT 25 U/L (16-61); Albumin, Serum 3.5 g/dL (3.2-5.0); Alkaline Phosphatase 61 U/L (45-117); Anion Gap 5 (5-15); BUN 30 mg/dL (7-18); Calcium,Total 9.1 mg/dL (8.5-10.1); Chloride 106 mmol/L (98-107); Cholesterol 135 mg/dL (200); Creatinine, Serum 1.58 mg/dL (0.70-1.30); EST Glomerular Filtration Rate 45 mL/min (>60); Est Glom Filt Rate - Afr Amer 55 mL/min (>60); Globulin 3.8 g/dL (2.2-4.2); Glucose 162 mg/dL (74-106); High Density Lipoprotein 36 mg/dL; Protein, Total 7.3 g/dL (6.4-8.2); Sodium Level 139 mmol/L (136-145); Triglycerides 192 mg/dL; Very Low Density Lipoprotein 38 mg/dL (5-40)
[2021-11-27 18:07] LABS: Hemoglobin A1c 7.3 % (3.8-5.6)
[2021-11-27 18:09] LABS: Vitamin D,25 Hydroxy 47.6 ng/mL
[2021-11-27 18:22] LABS: White Blood Cells 0-5 SEEN /hpf (0-5)
[2021-11-27 18:23] LABS: Bacteria RARE /hpf (None Seen); Squamous Epithelial Cells - UA 0-5 SEEN /hpf (0-5)
== END | disposition home or self-care (01) ==
LOC: MFPLAB 15:32
PROVIDERS: PCP Family Medicine; Visit Provider Family Medicine
DX: E11.22 Type 2 diabetes mellitus with diabetic chronic kidney disease (principal); N18.30 Chronic kidney disease, stage 3 unspecified; E55.9 Vitamin D deficiency, unspecified
CPT/HCPCS: 80053; 80061; 81001; 82306; 82570; 83036; 84156; 85025

== ENCOUNTER 2022-01-05 07:17 | Day surgery (SDC) | payer MEDICARE, SELFPAY ==
[2022-01-05] VITALS (8 sets, daily range): BP systolic 80–104; BP diastolic 32–60; PULSE 58–86; RESP 16; TEMP 36.2–36.3; O2SAT 90–95; BMI 29.9
--- NOTE | 2022-01-05 07:26 | PCM.HP.BLA ---
History and Physical Date of Admission: 01/05/22 Visit Reasons:?EGD having on-going reflux issues Chief Complaint: EGD, hx Barretts, on going reflux issues Otolaryngology Surgeon Required: No Is patient in pain?: No Allergies No Known Allergies Allergy (Verified 12/15/21 09:02) Medications atorvastatin 20 mg tablet 20 mg PO DAILY #90 tabs 05/04/19 [History Confirmed 12/15/21] melatonin 10 mg capsule 10 mg PO HS 05/04/19 [History Confirmed 12/15/21] metoprolol tartrate 25 mg tablet 25 mg PO BID #180 tabs 05/04/19 [History Confirmed 12/15/21] cephalexin 500 mg capsule 500 mg PO Q8H 5 days #15 CAPSULES 03/01/21 [Rx] albuterol sulfate 90 mcg/actuation breath activated powder inhaler 2 inh inhalation Q4H PRN 12/15/21 [History Confirmed 12/15/21] calcium carbonate 600 mg calcium (1,500 mg) tablet (Calcium) 600 mg PO DAILY 12/15/21 [History Confirmed 12/15/21] cholecalciferol (vitamin D3) 50 mcg (2,000 unit) capsule (D3-2000) 50 mcg PO DAILY 12/15/21 [History Confirmed 12/15/21] finerenone 10 mg tablet (Kerendia) 10 mg PO DAILY 12/15/21 [History Confirmed 12/15/21] lisinopril 20 mg-hydrochlorothiazide 12.5 mg tablet 1 tab PO BID #60 tabs 12/15/21 [History Confirmed 12/15/21] omeprazole 20 mg capsule,delayed release 40 mg PO DAILY #30 caps 12/15/21 [History Confirmed 12/15/21] pioglitazone 30 mg tablet 30 mg PO DAILY 12/15/21 [History Confirmed 12/15/21] semaglutide (Ozempic) 0.25 mg subcut QWEEK 12/15/21 [History Confirmed 12/15/21] tamsulosin 0.4 mg capsule 0.4 mg PO QHS 12/15/21 [History Confirmed 12/15/21] PFSH Medical History? BPH (benign prostatic hyperplasia) Diabetes GERD (gastroesophageal reflux disease) High cholesterol History of Baldwin's esophagus HTN (hypertension) Personal history of colonic polyps Surgical History? S/P bilateral inguinal hernia repair Family History? Mother DiabetesFather Heart diseaseSister Breast cancer Social History?(Updated 12/15/21 @ 09:01 by Holley Saturday) Smoking Status:? Former smoker alcohol intake:? never substance use type:? does not use HPI HPI HPI: FAUSTINO PATRICK, is a 81 M who presents to the office today for surgical consultation regarding ongoing symptoms consistent with gastroesophageal reflux disease.? The patient is referred by Dr Luc Aranda and a written copy of my surgical consult recommendations will return to him.? I have assisted this patient as recently as May 10, 2019 with a combined esophagogastroduodenoscopy and colonoscopy.? The upper endoscopy was notable for a medium size hiatal hernia and short segment Baldwin's esophagus.? There was no dysplasia identified.? Mild gastritis identified.? H. pylori was negative.? The colonoscopy was notable for hemorrhoids and enlarged prostate and a 5 mm tubular adenoma of the cecum and a 3 mm tubular adenoma of the descending colon.? As of November 27, 2021 white blood cell count 7.2 with a hemoglobin 13.8 and hematocrit of 42.1 with a platelet count of 209,000.? BUN 30 and creatinine 1.58 with an estimated creatinine clearance of 45 consistent with stage IIIa chronic kidney disease.? Glucose was 162 with a hemoglobin A1c of 7.3.? Liver function tests essentially normal. In addition to the patient's escalating reflux symptoms he also has concerns about recent onset of looser stools almost diarrhea.? He states that 6 weeks ago he was started on Ozempic.? He thinks there is a direct correlation between that and a change of his bowel habits.? As noted above he did previously have 2 small polyps but would otherwise not be due for routine surveillance exam for 2 more years.? The patient does not have abdominal pain with this looser diarrheal stool ROS General General: No weight change, appetite, fatigue, colon cancer, breast cancer or weakness HEENT HEENT: No difficulty swallowing, eye injury, eye surgery, swollen glands or hoarseness Endo Endocrine: Yes diabetes mellitus; No thyroid disease, thyroid cancer, Hair loss, heat intolerance or cold intolerance Skin Skin: No rash or changing moles Musc Musculoskeletal: No back problems, arthritis, rheumatoid arthritis, gout or joint pain Cardio Cardiovascular: Yes high blood pressure; No murmur, pacemaker, heart disease, atrial fibrillation, heart attack, heart stent, palpitations, shortness of breat with exertion or chest pain Psych Psychiatric: No depression, anxiety or hearing voices Resp Respiratory: No shortness of breath, No sleep apnea, No cough, No COPD, No asthma, No emphysema and No wheezing Gastro Gastrointestinal: Yes abdominal pain, No nausea or vomiting, Yes diarrhea, No constipation, No blood in stool, Yes acid reflux, No hemorrhoids, No ulcers, No gallbladder problem and No black,tarry stools Guru Hematologic: No blood thinners, No blood disorders, No bleeding, No anemia and No blood clots Neuro Neurologic: No system reviewed and no additional complaints, except as documented, No as per HPI, No abnormal gait, No abnormal hearing, No abnormal movements, No abnormal speech, No behavioral changes, No burning sensations, No confusion, No convulsions, No disequilibrium, No dizziness, No localized weakness, No frequent falls, No headache(s), No lack of coordination, No loss of vision, No memory loss, No numbness, No other visual disturbances, No radicular pain, No restless legs, No sensory deficit, No syncope, No tingling, No tremor(s), No weakness and No other Exam Const General: cooperative, healthy appearing, comfortable and no acute distress Nutritional Appearance: obese Orientation: alert and awake [facility] Head: normal to inspection Eyes General: appearance normal, both eyes and all related structures Neck Neck: normal visual inspection Chest Chest palpation & inspection: normal inspection of the chest Resp Effort & Inspection: normal respiratory effort Auscultation: clear to auscultation bilaterally Cardio Rate: regular rate Rhythm: regular rhythm GI Inspection: normal to inspection Palpation: soft and no hepatosplenomegaly Musc Cervical Spine: normal cervical lordosis Neuro General: patient alert, patient awake and patient oriented x3 Extrem General: no calf tenderness Psych Appearance: grossly normal Assessment and Plan Assessment and Plan (1) GERD (gastroesophageal reflux disease): ?Status:?Acute ?Qualifiers: ?Esophagitis presence:?esophagitis presence not specified? Qualified Code(s):?K21.9 - Gastro-esophageal reflux disease without esophagitis (2) History of Baldwin's esophagus: ?Status:?Acute (3) Change in bowel habit: ?Status:?Acute Plan I recommended the patient a esophagogastroduodenoscopy with possible biopsy.? Very careful inspection for Baldwin's and biopsy is appropriate.? I will additionally look for additional confounders that might correlate with his increased reflux symptomatology. I have educated him about nighttime eating and head of bed elevation and diet and weight loss if possible.? We talked about reflux inducing foods and drink.? He has had an opportunity to ask and have questions answered regarding this. Regarding his recent change of bowel habits whether it is related to his medication Ozempic is not clear to me.? I have suggested that he contact Dr Luc Aranda for clarification.? If a medication adjustment can be made and the patient improves then I do not believe additional investigation would be required.? If however it is not felt to be correlating to the Ozempic or improve after treatment changed then I would propose for him to add a colonoscopy at the time of his upper endoscopy with inspection as to whether potentially random biopsies would be of assistance. He is very much in agreement with this and states that he will assist with following through with Dr Luc Aranda I appreciate the ongoing opportunity of assisting with the surgical care Copy: Dr Luc Jordan M.D., F.A.C.S. I have re-examined the patient. There are no clinical changes since date of exam. Dexter Jordan M.D., F.A.C.S.
[2022-01-05] MEDS: Lactated Ringers 1,000 ML 15 ML IV (07:50)
[2022-01-05 08:10] LABS: Bedside Glucose 173 mg/dL (74-106)
--- NOTE | 2022-01-05 08:30 | EGD_PTH ---
PATIENT: FAUSTINO PATRICK LOC: [facility] U#:[id number] AGE/SX: 81/M ROOM: RE01/05/[address]: Dr. Dexter Jordan MD : 1940 BED: DIS: 01/05/2022 SPEC #: [id number] RECD: 01/05/22 13:28 STATUS: NYDIA ERIC #: [id number] LUIS: 01/05/22 08:[address]: Dexter Jordan DEPT: SURGICAL PATHOLOGY RECD BY: Shireen Lozano ENTERED: 01/08/22 11:47 SP TYPE: EGD BIOPSY OT DR: Dr. Luc Aranda MD Tissues: A - Gastric mucous membrane B - Esophagus, NOS C - Stomach, NOS D - COLON BIOPSY Procedures: Special Stain Group II Surgery Specimen Level IV Alcian Blue/PAS (control) HEADER OPERATION: Colonoscopy, EGD with biopsies (MAC) PRE-OP DIAGNOSIS: GERD, history of Baldwin?s esophagus, change in bowel habits TISSUE SUBMITTED: A ? Antrum biopsy, B ? Distal esophagus biopsy, C ? Greater curvature polyp, D ? Random colon biopsy MICROSCOPIC DIAGNOSIS A. Antrum, biopsy: Mild gastritis. See microscopic description and comment. B. Distal esophagus, biopsy: Fragments of gastroesophageal mucosa with chronic inflammation. Intestinal metaplasia (goblet cell metaplasia) is not identified. See comment. C. Greater curvature polyp, biopsy: Fundic gland polyp. D. Colon, random biopsy: Fragments of colonic mucosa with a few pigment laden macrophages, consistent with melanosis coli. SJ:mono 01/09/2022 COMMENT A. The results of immunohistochemistry for Helicobacter pylori will be reported separately ([id number]). B. Alcian blue/PAS stain with matched control is used in the evaluation of the specimen. MICROSCOPIC DESCRIPTION Slides are reviewed. A. The specimen shows fragments of gastric mucosa with chronic inflammatory cell infiltrates in the lamina propria consisting of lymphocytes and plasma cells, consistent with mild chronic gastritis. GROSS DESCRIPTION A - Received in fixative is one container labeled with the patient's name and designated antrum biopsy. The specimen consists of one irregular fragment of light mishra soft tissue that measures 0.4 x 0.4 x 0.1 cm. The specimen is totally submitted in one cassette. B - Received in fixative is one container labeled with the patient's name and designated distal esophagus biopsy. The specimen consists of multiple irregular fragments of light mishra soft tissue that in aggregate measure 1.5 x 0.5 x 0.1 cm. The specimen is totally submitted in one cassette. C - Received in fixative is one container labeled with the patient's name and designated greater curvature polyp. The specimen consists of one irregular fragment of light mishra soft tissue that measures 0.3 x 0.3 x 0.1 cm. The specimen is totally submitted in one cassette. D - Received in fixative is one container labeled with the patient's name and designated random colon biopsy. The specimen consists of multiple irregular fragments of light mishra soft tissue that in aggregate measure 1.5 x 0.5 x 0.1 cm. The specimen is totally submitted in one cassette. / SJ:rg 01/08/2022 TC:3 CPT: 11589 x4, 12574
--- NOTE | 2022-01-05 08:30 | IMM_PTH ---
PATIENT: FAUSTINO PATRICK LOC: [facility] U#:[id number] AGE/SX: 81/M ROOM: RE01/05/[address]: Dr. Dexter Jordan MD : 1940 BED: DIS: 01/05/2022 SPEC #: [id number] RECD: 01/08/22 12:30 STATUS: NYDIA ERIC #: [id number] LUIS: 01/05/22 08:[address]: Dexter Jordan DEPT: IMMUNOHISTOCHEMISTRY RECD BY: Emmy Hernández ENTERED: 01/08/22 12:30 SP TYPE: IMMUNO OTHR DR: Dr. Luc Aranda MD Tissues: A - Stomach, NOS Procedures: H Pylori (initial) PHYSICIAN & INSTITUTION [place] [address] SPECIMEN INFORMATION: Tissue Source: A ? Antrum biopsy Clinical Info: GERD, history of Baldwin?s esophagus, change in bowel habit Specimen Number: [id number] CPT code: 62786 METHODOLOGY: Deparaffinized sections of prefer/formalin-fixed tissue or PAP/DQ stained slides are incubated with monoclonal/polyclonal antibodies/oligonucleotide probes. Localization is made via biotin free immunoperoxidase method. Appropriate controls are performed and reacted as expected. Results on target cell population are indicated in the following table: RESULTS: ANTIBODY / CLONE RESULT Block A H Pylori (polyclonal) negative These tests were developed and their performance characteristics determined by [facility]. They may not have been cleared or approved by the U.S. Food and Drug Administration. The FDA has determined that such clearance or approval is not necessary. The above immunohistochemical/dualISH markers are ordered and reviewed by the Pathologist. INTERPRETATION: A. Antrum, biopsy: Negative for Helicobacter pylori organisms. SJ:mono 01/09/2022
--- NOTE | 2022-01-05 09:43 | OP.EGD_ITS ---
Patient Name: Jorgito Melendrez Procedure Date: 01/05/2022 9:04 AM Date of : 1940 Age: 81 Procedure: Upper GI endoscopy Indications: Follow-up of Baldwin's esophagus Providers: Dexter Jordan MD Medicines: See the Anesthesia note for documentation of the administered medications Complications: No immediate complications. Procedure: Pre-Anesthesia Assessment: - Prior to the procedure, a History and Physical was performed, and patient medications and allergies were reviewed. The patient's tolerance of previous anesthesia was also reviewed. The risks and benefits of the procedure and the sedation options and risks were discussed with the patient. All questions were answered, and informed consent was obtained. Prior Anticoagulants: The patient has taken no previous anticoagulant or antiplatelet agents. ASA Grade Assessment: II - A patient with mild systemic disease. After reviewing the risks and benefits, the patient was deemed in satisfactory condition to undergo the procedure. After obtaining informed consent, the endoscope was passed under direct vision. Throughout the procedure, the patient's blood pressure, pulse, and oxygen saturations were monitored continuously. The gastroscope was introduced through the mouth, and advanced to the second part of duodenum. The upper GI endoscopy was accomplished without difficulty. The patient tolerated the procedure well. Scope In: 9:10:16 AM Scope Out: 9:16:56 AM Total Procedure Duration Time 0 hours 6 minutes 40 seconds Findings: There were esophageal mucosal changes suspicious for short-segment Baldwin's esophagus present at the gastroesophageal junction. Mucosa was biopsied with a cold forceps for histology in 4 quadrants at intervals of 2 cm at 39 cm from the incisors and at the gastroesophageal junction. A few sessile polyps with no bleeding and no stigmata of recent bleeding were found on the greater curvature of the stomach. Biopsies were taken with a cold forceps for histology. Diffuse mildly erythematous mucosa without bleeding was found in the gastric antrum. Biopsies were taken with a cold forceps for histology. The examined duodenum was normal. Biopsies were taken with a cold forceps for histology. Impression: - Esophageal mucosal changes suspicious for short-segment Baldwin's esophagus. Biopsied. - A few gastric polyps. Biopsied. - Erythematous mucosa in the antrum. Biopsied. - Normal examined duodenum. Biopsied. Recommendation: - Discharge patient to home. - Resume previous diet. - Continue present medications. - Telephone my office for pathology results in 1 week. Procedure Code(s): --- Professional --- 63186, Esophagogastroduodenoscopy, flexible, transoral; with biopsy, single or multiple Diagnosis Code(s): --- Professional --- K22.70, Baldwin's esophagus without dysplasia K31.7, Polyp of stomach and duodenum K31.89, Other diseases of stomach and duodenum CPT copyright 2017 [employer]. All rights reserved. The codes documented in this report are preliminary and upon computer language coder review may be revised to meet current compliance requirements. Dexter Jordan MD 01/05/2022 9:42:56 AM This report has been signed electronically. Number of Addenda: 0 Note Initiated On: 01/05/2022 9:04 AM
--- NOTE | 2022-01-05 09:44 | OP.CCLET_ITS ---
01/05/2022 Luc Aranda [address] [place] [address] Re : Upper GI endoscopy procedure for Jorgito Melendrez Dear Dr. Aranda This procedure was performed on Wednesday, January 05, 2022. My impressions and recommendations are as follows: Impressions : - Esophageal mucosal changes suspicious for short-segment Baldwin's esophagus. Biopsied. - A few gastric polyps. Biopsied. - Erythematous mucosa in the antrum. Biopsied. - Normal examined duodenum. Biopsied. Recommendations : - Discharge patient to home. - Resume previous diet. - Continue present medications. - Telephone my office for pathology results in 1 week. My findings are described in the full procedure note, which is enclosed. If I can be of further assistance, please feel free to contact me at Doctor phone number(s): Work: . Sincerely, Dexter Jordan MD 01/05/2022 9:42:56 AM This report has been signed electronically.
--- NOTE | 2022-01-05 09:48 | OP.CCLET_ITS ---
01/05/2022 Luc Aranda [address] [place] [address] Re : Colonoscopy procedure for Jorgito Melendrez Dear Dr. Aranda This procedure was performed on Wednesday, January 05, 2022. My impressions and recommendations are as follows: Impressions : - Non-thrombosed external hemorrhoids, non-thrombosed internal hemorrhoids and internal hemorrhoids that prolapse with straining, but spontaneously regress to the resting position (Grade II) found on digital rectal exam. - Diverticulosis in the sigmoid colon and in the descending colon. - The examination was otherwise normal. - Biopsies were taken with a cold forceps from the entire colon for evaluation of microscopic colitis. Recommendations : - Discharge patient to home. - Resume previous diet. - Continue present medications. - Repeat colonoscopy in 5 years for surveillance based on pathology results. - Telephone GI clinic for pathology results in 1 week. My findings are described in the full procedure note, which is enclosed. If I can be of further assistance, please feel free to contact me at Doctor phone number(s): Work: . Sincerely, Dexter Jordan MD 01/05/2022 9:47:38 AM This report has been signed electronically.
--- NOTE | 2022-01-05 09:48 | OP.COLON_ITS ---
Patient Name: Jorgito Melendrez Procedure Date: 01/05/2022 9:18 AM Date of : 1940 Age: 81 Procedure: Colonoscopy Indications: High risk colon cancer surveillance: Personal history of colonic polyps Providers: Dexter Jordan MD Patient Profile: Last Colonoscopy: more than 3 years ago. Complications: No immediate complications. Procedure: Pre-Anesthesia Assessment: - Prior to the procedure, a History and Physical was performed, and patient medications and allergies were reviewed. The patient's tolerance of previous anesthesia was also reviewed. The risks and benefits of the procedure and the sedation options and risks were discussed with the patient. All questions were answered, and informed consent was obtained. Prior Anticoagulants: The patient has taken no previous anticoagulant or antiplatelet agents. ASA Grade Assessment: II - A patient with mild systemic disease. After reviewing the risks and benefits, the patient was deemed in satisfactory condition to undergo the procedure. After I obtained informed consent, the scope was passed under direct vision. Throughout the procedure, the patient's blood pressure, pulse, and oxygen saturations were monitored continuously. The pediatric colonoscope was introduced through the anus and advanced to the cecum, identified by appendiceal orifice and ileocecal valve. The colonoscopy was performed without difficulty. The patient tolerated the procedure well. The quality of the bowel preparation was good. The ileocecal valve and the appendiceal orifice were photographed. Scope In: 9:21:29 AM Scope Withdrawal Time 0 hours 8 minutes 9 seconds Scope Out: 9:37:10 AM Total Procedure Duration Time 0 hours 15 minutes 41 seconds Findings: The digital rectal exam was normal. The digital rectal exam findings include non-thrombosed external hemorrhoids, non-thrombosed internal hemorrhoids and internal hemorrhoids that prolapse with straining, but spontaneously regress to the resting position (Grade II). Multiple diverticula were found in the sigmoid colon and descending colon. The exam was otherwise without abnormality. Biopsies for histology were taken with a cold forceps from the entire colon for evaluation of microscopic colitis. Impression: - Non-thrombosed external hemorrhoids, non-thrombosed internal hemorrhoids and internal hemorrhoids that prolapse with straining, but spontaneously regress to the resting position (Grade II) found on digital rectal exam. - Diverticulosis in the sigmoid colon and in the descending colon. - The examination was otherwise normal. - Biopsies were taken with a cold forceps from the entire colon for evaluation of microscopic colitis. Recommendation: - Discharge patient to home. - Resume previous diet. - Continue present medications. - Repeat colonoscopy in 5 years for surveillance based on pathology results. - Telephone GI clinic for pathology results in 1 week. Procedure Code(s): --- Professional --- 97553, Colonoscopy, flexible; with biopsy, single or multiple Diagnosis Code(s): --- Professional --- Z86.010, Personal history of colonic polyps K64.1, Second degree hemorrhoids K64.4, Residual hemorrhoidal skin tags K57.30, Diverticulosis of large intestine without perforation or abscess without bleeding CPT copyright 2017 [employer]. All rights reserved. The codes documented in this report are preliminary and upon hydraulic specialist review may be revised to meet current compliance requirements. Dexter Jordan MD 01/05/2022 9:47:38 AM This report has been signed electronically. Number of Addenda: 0 Note Initiated On: 01/05/2022 9:18 AM
== END 2022-01-05 10:44 | disposition home or self-care (01) ==
LOC: EN 07:20 → AC 07:21
PROVIDERS: PCP Family Medicine; Referring Provider Family Medicine; Visit Provider Surgery
PROC: 0DJD8ZZ Inspection of Lower Intestinal Tract, Via Natural or Artificial Opening Endoscopic (ICD-10-PCS; CPT 45378; principal; 2022-01-05 08:25)
DX: K21.00 Gastro-esophageal reflux disease with esophagitis, without bleeding (principal); K31.89 Other diseases of stomach and duodenum; K29.50 Unspecified chronic gastritis without bleeding; K57.30 Diverticulosis of large intestine without perforation or abscess without bleeding; K64.4 Residual hemorrhoidal skin tags; K31.7 Polyp of stomach and duodenum; K63.89 Other specified diseases of intestine; K64.1 Second degree hemorrhoids; N40.0 Benign prostatic hyperplasia without lower urinary tract symptoms; E78.00 Pure hypercholesterolemia, unspecified; I10 Essential (primary) hypertension; E66.9 Obesity, unspecified; Z79.899 Other long term (current) drug therapy; Z86.010 Personal history of colon polyps; Z87.891 Personal history of nicotine dependence
CPT/HCPCS: 43239; 45380; 82962; 88305; 88313; 88342; J7120; J2405

== ENCOUNTER → 2022-01-12 | Outpatient (CLI) | payer MEDICARE, SELFPAY ==
[2022-01-12 10:35] LABS: Anion Gap 8 (5-15); BUN 33 mg/dL (7-18); BUN/Creat Ratio 17.6 RATIO (10-20); Calcium,Total 9.1 mg/dL (8.5-10.1); Chloride 105 mmol/L (98-107); Creatinine, Serum 1.88 mg/dL (0.70-1.30); EST Glomerular Filtration Rate 37 mL/min (>60); Est Glom Filt Rate - Afr Amer 45 mL/min (>60); Glucose 163 mg/dL (74-106); Potassium 3.9 mmol/L (3.5-5.1); Sodium Level 137 mmol/L (136-145)
== END | disposition home or self-care (01) ==
LOC: MFPLAB 08:42
PROVIDERS: PCP Family Medicine; Referring Provider Family Medicine; Visit Provider Family Medicine
DX: N18.30 Chronic kidney disease, stage 3 unspecified (principal)
CPT/HCPCS: 36415; 80048

== ENCOUNTER → 2022-02-26 | Outpatient (CLI) | payer MEDICARE, SELFPAY ==
[2022-02-26 15:24] LABS: Absolute Lymphocyte Count 1.67 X10^3/uL (0.83-4.51); Absolute Neutrophil Count 4.9 X10^3/uL (2.0-7.7); Basophil# 0.04 X10^3/uL; Basophil% 0.5 % (0-1); Eosinophils% 2.7 % (0-5); Hematocrit 41.6 % (40-54); Hemoglobin 13.7 g/dL (13.0-16.5); Lymphocyte # 1.67 X10^3/ul (0.83-4.51); Lymphocyte % 22.2 % (19-41); Mean Corp Hgb Conc 32.9 g/dL (32-36); Mean Corpuscular Hgb 30.5 pg (27.0-32.0); Mean Corpuscular Volume 92.7 fL (80-94); Mean Platelet Vol. 10.5 fl (6.2-12.0); Monocyte% 9.3 % (0-10); NRBC Flagged by Analyzer 0 % (0-5); Neutrophil # 4.88 X10^3/uL (2.7-7.7); Neutrophil % 64.8 % (47-70); Platelet Count 217 K/mm3 (150-450); RBC Distribution Width CV 12.8 % (11.6-14.6); RBC Distribution Width SD 43.4 fl (35.1-43.9); Red Blood Count 4.49 M/mm3 (4.6-6.2); White Blood Count 7.5 K/mm3 (4.4-11.0)
[2022-02-26 15:37] LABS: AST(SGOT) 17 U/L (15-37); Alanine Aminotransfer ALT/SGPT 29 U/L (16-61); Albumin, Serum 3.6 g/dL (3.2-5.0); Alkaline Phosphatase 56 U/L (45-117); Anion Gap 7 (5-15); BUN 23 mg/dL (7-18); BUN/Creat Ratio 15.6 RATIO (10-20); Calcium,Total 9.4 mg/dL (8.5-10.1); Chloride 104 mmol/L (98-107); Cholesterol 131 mg/dL (200); Creatinine, Serum 1.47 mg/dL (0.70-1.30); EST Glomerular Filtration Rate 49 mL/min (>60); Est Glom Filt Rate - Afr Amer 59 mL/min (>60); Globulin 3.7 g/dL (2.2-4.2); Glucose 151 mg/dL (74-106); High Density Lipoprotein 30 mg/dL; Potassium 3.9 mmol/L (3.5-5.1); Protein, Total 7.3 g/dL (6.4-8.2); Sodium Level 137 mmol/L (136-145); Triglycerides 162 mg/dL; Very Low Density Lipoprotein 32 mg/dL (5-40)
[2022-02-26 15:46] LABS: Vitamin D,25 Hydroxy 39.6 ng/mL
[2022-02-26 15:59] LABS: Hemoglobin A1c 7.3 % (3.8-5.6)
== END | disposition home or self-care (01) ==
LOC: MFPLAB 12:02
PROVIDERS: PCP Family Medicine; Visit Provider Family Medicine
DX: M85.80 Other specified disorders of bone density and structure, unspecified site (principal); E11.9 Type 2 diabetes mellitus without complications
CPT/HCPCS: 36415; 80053; 80061; 82306; 83036; 83970; 85025

== ENCOUNTER → 2022-05-14 | Outpatient (CLI) | payer MEDICARE, SELFPAY ==
[2022-05-14 11:27] LABS: Bacteria 0 SEEN /hpf (None Seen); Mucous, Urine 0 SEEN /hpf (<or=2+); Red Blood Cells-Urine 0 SEEN /hpf (0-5); White Blood Cells 0 SEEN /hpf (0-5)
[2022-05-14 15:03] LABS: Absolute Lymphocyte Count 1.96 X10^3/uL (0.83-4.51); Absolute Neutrophil Count 3.8 X10^3/uL (2.0-7.7); Basophil# 0.03 X10^3/uL; Basophil% 0.4 % (0-1); Eosinophil# 0.18 X10^3/uL; Eosinophils% 2.7 % (0-5); Hematocrit 41.6 % (40-54); Hemoglobin 13.3 g/dL (13.0-16.5); Lymphocyte # 1.96 X10^3/ul (0.83-4.51); Mean Corpuscular Volume 93.7 fL (80-94); Mean Platelet Vol. 10.2 fl (6.2-12.0); Monocyte# 0.73 X10^3/uL; Monocyte% 10.8 % (0-10); NRBC Flagged by Analyzer 0 % (0-5); Neutrophil # 3.84 X10^3/uL (2.7-7.7); Neutrophil % 56.7 % (47-70); Platelet Count 251 K/mm3 (150-450); RBC Distribution Width CV 12.9 % (11.6-14.6); RBC Distribution Width SD 44.5 fl (35.1-43.9); Red Blood Count 4.44 M/mm3 (4.6-6.2); White Blood Count 6.8 K/mm3 (4.4-11.0)
[2022-05-14 15:09] LABS: Color, Urine Yellow (Yellow); Glucose, Dipstick Normal (Normal); Ketone-Dipstick Negative (Negative); Leukocyte Esterase-Dipstick Negative /ul (Negative); Nitrite-Dipstick Negative (Negative); Occult Blood-Urine Negative /ul (Negative); Protein-Dipstick Negative (Negative); Urine Bilirubin Dipstick Negative (Negative); Urine Clarity Clear (Clear); Urine Urobilinogen Normal (Normal); Urine pH 6.5 (5.0 - 8.0)
[2022-05-14 15:19] LABS: Squamous Epithelial Cells - UA 0-5 SEEN /hpf (0-5)
[2022-05-14 15:23] LABS: ALB/GLOB Ratio 1.1 RATIO (0.9-2.4); AST(SGOT) 18 U/L (15-37); Alanine Aminotransfer ALT/SGPT 28 U/L (16-61); Albumin, Serum 3.5 g/dL (3.2-5.0); Alkaline Phosphatase 55 U/L (45-117); Anion Gap 7 (5-15); BUN 29 mg/dL (7-18); BUN/Creat Ratio 19.6 RATIO (10-20); Calcium,Total 8.9 mg/dL (8.5-10.1); Chloride 104 mmol/L (98-107); Cholesterol 134 mg/dL (200); Creatinine, Serum 1.48 mg/dL (0.70-1.30); EST Glomerular Filtration Rate 49 mL/min (>60); Est Glom Filt Rate - Afr Amer 59 mL/min (>60); Globulin 3.2 g/dL (2.2-4.2); Glucose 167 mg/dL (74-106); High Density Lipoprotein 31 mg/dL; Phosphorus 3.3 mg/dL (2.5-4.9); Potassium 4.4 mmol/L (3.5-5.1); Protein, Total 6.7 g/dL (6.4-8.2); Sodium Level 138 mmol/L (136-145); Triglycerides 189 mg/dL; Very Low Density Lipoprotein 38 mg/dL (5-40)
[2022-05-14 15:27] LABS: Hemoglobin A1c 7.2 % (3.8-5.6)
[2022-05-14 15:28] LABS: Vitamin D,25 Hydroxy 33.3 ng/mL
[2022-05-14 15:36] LABS: Microalbumin,Random Urine 8.8 mg/L (NO RANGE EST.); Protein, Urine (Random) < 6.0 mg/dL (<11.9); Protein:Creat Ratio 76 mg/g CRE (0-200)
[2022-05-15 08:13] LABS: PTHIN 56.4 pg/mL (18.4-80.1)
== END | disposition home or self-care (01) ==
LOC: MFPLAB 11:14
PROVIDERS: PCP Family Medicine; Visit Provider Family Medicine
DX: E11.22 Type 2 diabetes mellitus with diabetic chronic kidney disease (principal); N18.30 Chronic kidney disease, stage 3 unspecified; E55.9 Vitamin D deficiency, unspecified
CPT/HCPCS: 36415; 80053; 80061; 81001; 82043; 82306; 82570; 83036; 83970; 84100; 84156; 85025

== ENCOUNTER → 2022-09-07 | Outpatient (CLI) | payer MEDICARE, SELFPAY ==
[2022-09-07 12:33] LABS: Absolute Lymphocyte Count 1.72 X10^3/uL (0.83-4.51); Absolute Neutrophil Count 4.8 X10^3/uL (2.0-7.7); Basophil# 0.04 X10^3/uL; Basophil% 0.5 % (0-1); Eosinophil# 0.15 X10^3/uL; Hematocrit 38.4 % (40-54); Lymphocyte # 1.72 X10^3/ul (0.83-4.51); Lymphocyte % 23.2 % (19-41); Mean Corp Hgb Conc 33.9 g/dL (32-36); Mean Corpuscular Hgb 31.3 pg (27.0-32.0); Mean Corpuscular Volume 92.3 fL (80-94); Mean Platelet Vol. 10.7 fl (6.2-12.0); Monocyte# 0.73 X10^3/uL; Monocyte% 9.8 % (0-10); NRBC Flagged by Analyzer 0 % (0-5); Neutrophil # 4.75 X10^3/uL (2.7-7.7); Neutrophil % 64.1 % (47-70); Platelet Count 147 K/mm3 (150-450); RBC Distribution Width CV 12.7 % (11.6-14.6); Red Blood Count 4.16 M/mm3 (4.6-6.2); White Blood Count 7.4 K/mm3 (4.4-11.0)
[2022-09-07 12:57] LABS: Vitamin D,25 Hydroxy 41.3 ng/mL
[2022-09-07 12:58] LABS: PTHIN 44.3 pg/mL (18.4-80.1)
[2022-09-07 13:05] LABS: ALB/GLOB Ratio 0.9 RATIO (0.9-2.4); AST(SGOT) 19 U/L (15-37); Alanine Aminotransfer ALT/SGPT 29 U/L (16-61); Albumin, Serum 3.4 g/dL (3.2-5.0); Alkaline Phosphatase 60 U/L (45-117); Anion Gap 7 (5-15); BUN 41 mg/dL (7-18); BUN/Creat Ratio 27.7 RATIO (10-20); Calcium,Total 9.4 mg/dL (8.5-10.1); Chloride 106 mmol/L (98-107); Cholesterol 112 mg/dL (200); Creatinine, Serum 1.48 mg/dL (0.70-1.30); EST Glomerular Filtration Rate 49 mL/min (>60); Est Glom Filt Rate - Afr Amer 59 mL/min (>60); Globulin 3.9 g/dL (2.2-4.2); Glucose 161 mg/dL (74-106); High Density Lipoprotein 29 mg/dL; Protein, Total 7.3 g/dL (6.4-8.2); Sodium Level 138 mmol/L (136-145); Triglycerides 175 mg/dL; Very Low Density Lipoprotein 35 mg/dL (5-40)
[2022-09-07 13:34] LABS: Hemoglobin A1c 6.8 % (3.8-5.6)
== END | disposition home or self-care (01) ==
LOC: MFPLAB 10:18
PROVIDERS: PCP Family Medicine; Visit Provider Family Medicine
DX: E11.9 Type 2 diabetes mellitus without complications (principal); N25.81 Secondary hyperparathyroidism of renal origin; E55.9 Vitamin D deficiency, unspecified
CPT/HCPCS: 36415; 80053; 80061; 82306; 83036; 83970; 85025

== ENCOUNTER → 2023-01-08 | Outpatient (CLI) | payer MEDICARE, SELFPAY ==
[2023-01-08 12:29] LABS: Absolute Lymphocyte Count 2.06 X10^3/uL (0.83-4.51); Basophil# 0.04 X10^3/uL; Basophil% 0.6 % (0-1); Eosinophil# 0.09 X10^3/uL; Eosinophils% 1.3 % (0-5); Hematocrit 45.7 % (40-54); Hemoglobin 14.9 g/dL (13.0-16.5); Lymphocyte # 2.06 X10^3/ul (0.83-4.51); Lymphocyte % 29.7 % (19-41); Mean Corp Hgb Conc 32.6 g/dL (32-36); Mean Corpuscular Hgb 30.1 pg (27.0-32.0); Mean Corpuscular Volume 92.3 fL (80-94); Mean Platelet Vol. 10.9 fl (6.2-12.0); Monocyte# 0.74 X10^3/uL; Monocyte% 10.7 % (0-10); NRBC Flagged by Analyzer 0 % (0-5); Neutrophil # 3.98 X10^3/uL (2.7-7.7); Neutrophil % 57.3 % (47-70); Platelet Count 187 K/mm3 (150-450); RBC Distribution Width CV 12.2 % (11.6-14.6); RBC Distribution Width SD 41.3 fl (35.1-43.9); Red Blood Count 4.95 M/mm3 (4.6-6.2); White Blood Count 6.9 K/mm3 (4.4-11.0)
[2023-01-08 12:56] LABS: Vitamin D,25 Hydroxy 44.9 ng/mL
[2023-01-08 13:00] LABS: Hemoglobin A1c 8.3 % (3.8-5.6); Microalbumin:Creatinine Ratio 24.4 mg/g CRE (<30 mg/g CRE); Protein, Urine (Random) < 6.0 mg/dL (<11.9)
[2023-01-08 13:03] LABS: AST(SGOT) 18 U/L (15-37); Alanine Aminotransfer ALT/SGPT 26 U/L (16-61); Albumin, Serum 3.8 g/dL (3.2-5.0); Alkaline Phosphatase 85 U/L (45-117); Anion Gap 5 (5-15); BUN 23 mg/dL (7-18); Calcium,Total 9.3 mg/dL (8.5-10.1); Chloride 102 mmol/L (98-107); Cholesterol 111 mg/dL (200); Creatinine, Serum 1.35 mg/dL (0.70-1.30); EST Glomerular Filtration Rate 54 mL/min (>60); Est Glom Filt Rate - Afr Amer 65 mL/min (>60); Globulin 3.8 g/dL (2.2-4.2); Glucose 164 mg/dL (74-106); High Density Lipoprotein 29 mg/dL; Potassium 4.6 mmol/L (3.5-5.1); Protein, Total 7.6 g/dL (6.4-8.2); Sodium Level 133 mmol/L (136-145); Triglycerides 165 mg/dL; Very Low Density Lipoprotein 33 mg/dL (5-40)
== END | disposition home or self-care (01) ==
LOC: MFPLAB 10:33
PROVIDERS: PCP Family Medicine; Visit Provider Family Medicine
DX: E11.22 Type 2 diabetes mellitus with diabetic chronic kidney disease (principal); N25.81 Secondary hyperparathyroidism of renal origin; N18.9 Chronic kidney disease, unspecified
CPT/HCPCS: 36415; 80053; 80061; 82043; 82306; 82570; 83036; 83970; 84156; 85025

== ENCOUNTER → 2023-05-13 | Outpatient (CLI) | payer MEDICARE, SELFPAY ==
[2023-05-13 10:51] LABS: Bacteria 0 SEEN /hpf (None Seen); Mucous, Urine 0 SEEN /hpf (<or=2+); Red Blood Cells-Urine 0 SEEN /hpf (0-5); White Blood Cells 0 SEEN /hpf (0-5)
[2023-05-13 12:38] LABS: Color, Urine Yellow (Yellow); Glucose, Dipstick Normal (Normal); Ketone-Dipstick 5 mg/dl (Negative); Leukocyte Esterase-Dipstick Negative /ul (Negative); Nitrite-Dipstick Negative (Negative); Occult Blood-Urine Negative /ul (Negative); Protein-Dipstick 15 mg/dl (Negative); Urine Bilirubin Dipstick Negative (Negative); Urine Clarity Clear (Clear); Urine Urobilinogen Normal (Normal)
[2023-05-13 12:48] LABS: Squamous Epithelial Cells - UA 0-5 SEEN /hpf (0-5)
[2023-05-13 12:53] LABS: Vitamin D,25 Hydroxy 41.5 ng/mL
[2023-05-13 12:55] LABS: Absolute Lymphocyte Count 2.21 X10^3/uL (0.83-4.51); Absolute Neutrophil Count 4.7 X10^3/uL (2.0-7.7); Basophil# 0.04 X10^3/uL; Basophil% 0.5 % (0-1); Eosinophil# 0.11 X10^3/uL; Eosinophils% 1.4 % (0-5); Hematocrit 45.5 % (40-54); Hemoglobin 14.7 g/dL (13.0-16.5); Lymphocyte # 2.21 X10^3/ul (0.83-4.51); Lymphocyte % 27.8 % (19-41); Mean Corp Hgb Conc 32.3 g/dL (32-36); Mean Corpuscular Hgb 29.3 pg (27.0-32.0); Mean Corpuscular Volume 90.6 fL (80-94); Mean Platelet Vol. 10.2 fl (6.2-12.0); Monocyte# 0.87 X10^3/uL; Monocyte% 10.9 % (0-10); NRBC Flagged by Analyzer 0 % (0-5); Neutrophil # 4.69 X10^3/uL (2.7-7.7); Platelet Count 234 K/mm3 (150-450); RBC Distribution Width CV 12.5 % (11.6-14.6); RBC Distribution Width SD 41.1 fl (35.1-43.9); Red Blood Count 5.02 M/mm3 (4.6-6.2)
[2023-05-13 12:59] LABS: ALB/GLOB Ratio 0.9 RATIO (0.9-2.4); AST(SGOT) 17 U/L (15-37); Alanine Aminotransfer ALT/SGPT 28 U/L (16-61); Albumin, Serum 3.7 g/dL (3.2-5.0); Alkaline Phosphatase 79 U/L (45-117); Anion Gap 8 (5-15); BUN 19 mg/dL (7-18); BUN/Creat Ratio 14.6 RATIO (10-20); Calcium,Total 9.1 mg/dL (8.5-10.1); Chloride 102 mmol/L (98-107); Cholesterol 102 mg/dL (200); EST Glomerular Filtration Rate 56 mL/min (>60); Est Glom Filt Rate - Afr Amer 68 mL/min (>60); Globulin 3.9 g/dL (2.2-4.2); Glucose 129 mg/dL (74-106); Hemoglobin A1c 7.7 % (3.8-5.6); High Density Lipoprotein 29 mg/dL; Phosphorus 3.1 mg/dL (2.5-4.9); Potassium 3.9 mmol/L (3.5-5.1); Protein, Total 7.6 g/dL (6.4-8.2); Sodium Level 136 mmol/L (136-145); Triglycerides 132 mg/dL; Very Low Density Lipoprotein 26 mg/dL (5-40)
[2023-05-13 13:03] LABS: Protein, Urine (Random) 15.2 mg/dL (<11.9); Protein:Creat Ratio 153 mg/g CRE (0-200)
== END | disposition home or self-care (01) ==
PROVIDERS: PCP Family Medicine; Visit Provider Family Medicine
DX: E11.22 Type 2 diabetes mellitus with diabetic chronic kidney disease (principal); N18.9 Chronic kidney disease, unspecified; E55.9 Vitamin D deficiency, unspecified
CPT/HCPCS: 36415; 80053; 80061; 81001; 82306; 82570; 83036; 83970; 84100; 84156; 85025

== ENCOUNTER → 2023-06-20 | Outpatient (CLI) | payer MEDICARE, SELFPAY ==
--- NOTE | 2023-06-20 12:03 | BD_ITS ---
STUDY: DUAL ENERGY X-RAY ABSORPTIOMETRY / DXA REASON FOR EXAM: Male, 82 years old. 733.90OsteopeniaBONE DENSITY REASON FOR EXAM TECHNIQUE: Bone Mineral Density (BMD) measurements of lumbar spine and bilateral hips were obtained. COMPARISON: Comparison is made with prior study dated January 07, 2019. FINDINGS: Lumbar Spine (L1-L4): g/cm2 (1.007) / T-score (-0.8) / Z-score (0.4) Findings are suggestive of normal bone density with a low fracture risk. Left Femur Total: g/cm2 (0.875) / T-score (-1.0) / Z-score (0.1) Left Femoral Neck: g/cm2 (0.579) / T-score (-2.6) / Z-score (-1.0) Right Femur Total: g/cm2 (0.874) / T-score (-1.1) / Z-score (0.1) Right Femoral Neck: g/cm2 (0.617) / T-score (-2.3) / Z-score (-0.7) The T-Scores on the most recent prior examination were: Lumbar Spine (L1-L4): There has been worsening of bone density since the previous examination. Left Femur Total: which represents a worsening of 1%. Right Femur Total: which represents a worsening of 0.1%. BD/Dexa Bone Density Study IMPRESSION: The patient is considered osteoporotic as outlined below according to [employer] [place] Organization (WHO) criteria with a high fracture risk. There has been worsening of bone density since the previous examination. Reference Information: The T-score is the number of standard deviations above or below the standard which is normal for young adults at their peak bone mineral density. The World Health Organization (WHO) interprets the T-scores as follows: Above -1 Normal bone density Between -1 and -2.5 Osteopenia Equal to / or below -2.5 Osteoporosis As a practical clinical guideline, osteopenia may be graded as follows: Mild -1 through -1.5 Moderate -1.6 through -2.0 Severe -2.1 through -2.4 The Z-score is the number of standard deviations above or below age-matched controls. A Z-score of less than -1.5 would be considered abnormal. References: 1. NIH Osteoporosis and Related Bone Diseases www osteo.org 2. International Society for Clinical Densitometry www iscd.org 3. National Osteoporosis Foundation www nof.org Electronically Signed: Speedy Solorzano MD at 15:09 EST ,
--- OUTSIDE RECORDS SUMMARY | 2023-06-20 12:11 | XMS RPT_ITS | CCD ---
Author Name Unknown Address [address] [place] [address] Organization [facility] Care Team Providers Care Hair Preparer Name Role Phone MARILYN, CHIP CHI Unavailable Unavailable BEBETO MAYEN Unavailable Unavailable MARILYN, CHIP CHI Unavailable Unavailable Problems Active Problems Problem Classification Problem Date Documented Da te Episodic/Chronic Unclassified (1 source) Unknown / UNK(Unknown) Onset: 04-17-2017 Past or Other Problems Problem Classification Problem Date Documented Da te Episodic/Chronic Unclassified (1 source) Encounter for screening for other disorder; Translations: [Encounter for screening for other disorder] Onset: 07-03-2017 Episodic Results Test Name Value Interpretation Reference Range Facil ity Encounters Encounter Date Encounter Type Care Provider Facility Start: 03-10-2018 End: 03-10-2018 Patient encounter [facility]IP S[facility] Start: 07-03-2017 Patient encounter BEBETO MAYEN [facility] Start: 04-17-2017 End: 04-17-2017 Patient encounter CHIP GARCIA MARILYN [facility] Summary Purpose Family History No Family History Records FoundNo Family History Records Found Advance Directives No Advanced Directives Records FoundNo Advanced Directives Records Found Additional Source Comments (unrecognized sect ion and content) No Status Records FoundNo Status Records Found INFORMATION SOURCE (unrecogn ized section and content) DATE CREATED AUTHOR AUTHOR'S ORGANIZ ATION 05/25/2018 [facility] FOR RECORDS PERTAINING TO PATIENTS WHO ARE OR HAVE BEEN ENROLLED IN A CHEMICAL DEPENDENCY/SUBSTANCEABUSE PROGRAM, SOME INFORMATION MAY BE OMITTED. This clinical summary was aggregated from multiple sources. Caution should be exercised in using it in the provision of clinical care. This summary normalizes information from multiple sources, and as a consequence, information in this document may materially change the coding, format and clinical context of patient data. In addition, data may be omitted in some cases. CLINICAL DECISIONS SHOULD BE BASED ON THE PRIMARY CLINICAL RECORDS. [facility]. provides no warranty or guarantee of the accuracy or completeness of information in this document.
== END | disposition home or self-care (01) ==
LOC: OPBD 11:46
PROVIDERS: PCP Family Medicine; Referring Provider Family Medicine; Visit Provider Family Medicine
DX: M85.89 Other specified disorders of bone density and structure, multiple sites (principal)
CPT/HCPCS: 77080

== ENCOUNTER → 2023-09-10 | Outpatient (CLI) | payer MEDICARE, SELFPAY ==
[2023-09-10 12:31] LABS: Absolute Lymphocyte Count 2.51 X10^3/uL (0.83-4.51); Absolute Neutrophil Count 5.4 X10^3/uL (2.0-7.7); Basophil# 0.06 X10^3/uL; Basophil% 0.7 % (0-1); Eosinophil# 0.12 X10^3/uL; Eosinophils% 1.3 % (0-5); Hematocrit 46.3 % (40-54); Hemoglobin 15.2 g/dL (13.0-16.5); Lymphocyte # 2.51 X10^3/ul (0.83-4.51); Lymphocyte % 27.6 % (19-41); Mean Corp Hgb Conc 32.8 g/dL (32-36); Mean Corpuscular Hgb 29.2 pg (27.0-32.0); Mean Platelet Vol. 10.7 fl (6.2-12.0); Monocyte# 1.01 X10^3/uL; Monocyte% 11.1 % (0-10); NRBC Flagged by Analyzer 0 % (0-5); Neutrophil # 5.36 X10^3/uL (2.7-7.7); Neutrophil % 58.9 % (47-70); Platelet Count 193 K/mm3 (150-450); RBC Distribution Width SD 42.2 fl (35.1-43.9); White Blood Count 9.1 K/mm3 (4.4-11.0)
[2023-09-10 12:57] LABS: Vitamin D,25 Hydroxy 48.7 ng/mL
[2023-09-10 13:22] LABS: AST(SGOT) 22 U/L (15-37); Alanine Aminotransfer ALT/SGPT 25 U/L (16-61); Albumin, Serum 3.8 g/dL (3.2-5.0); Alkaline Phosphatase 74 U/L (45-117); Anion Gap 10 (5-15); BUN 19 mg/dL (7-18); BUN/Creat Ratio 16.7 RATIO (10-20); Calcium,Total 9.4 mg/dL (8.5-10.1); Chloride 104 mmol/L (98-107); Cholesterol 133 mg/dL (200); Creatinine, Serum 1.14 mg/dL (0.70-1.30); EST Glomerular Filtration Rate 65 mL/min (>60); Est Glom Filt Rate - Afr Amer 79 mL/min (>60); Globulin 3.9 g/dL (2.2-4.2); Glucose 112 mg/dL (74-106); High Density Lipoprotein 33 mg/dL; Potassium 3.7 mmol/L (3.5-5.1); Protein, Total 7.7 g/dL (6.4-8.2); Sodium Level 139 mmol/L (136-145); Triglycerides 126 mg/dL; Very Low Density Lipoprotein 25 mg/dL (5-40)
[2023-09-10 13:41] LABS: Hemoglobin A1c 6.8 % (3.8-5.6)
[2023-09-10 18:12] LABS: Microalbumin,Random Urine 30.6 mg/L (NO RANGE EST.); Microalbumin:Creatinine Ratio 47.2 mg/g CRE (<30 mg/g CRE)
== END | disposition home or self-care (01) ==
LOC: MFPLAB 11:06
PROVIDERS: PCP Family Medicine; Visit Provider Family Medicine
DX: E11.9 Type 2 diabetes mellitus without complications (principal); E55.9 Vitamin D deficiency, unspecified
CPT/HCPCS: 36415; 80053; 80061; 82043; 82306; 82570; 83036; 85025

== ENCOUNTER → 2024-01-14 | Outpatient (CLI) | payer MEDICARE, SELFPAY ==
[2024-01-14 10:26] LABS: Absolute Lymphocyte Count 3.04 X10^3/uL (0.83-4.51); Absolute Neutrophil Count 5.8 X10^3/uL (2.0-7.7); Basophil# 0.06 X10^3/uL; Basophil% 0.6 % (0-1); Eosinophil# 0.18 X10^3/uL; Eosinophils% 1.8 % (0-5); Hematocrit 44.9 % (40-54); Hemoglobin 15.1 g/dL (13.0-16.5); Lymphocyte # 3.04 X10^3/ul (0.83-4.51); Lymphocyte % 30.1 % (19-41); Mean Corp Hgb Conc 33.6 g/dL (32-36); Mean Corpuscular Hgb 29.5 pg (27.0-32.0); Mean Corpuscular Volume 87.9 fL (80-94); Mean Platelet Vol. 10.5 fl (6.2-12.0); Monocyte# 0.96 X10^3/uL; Monocyte% 9.5 % (0-10); NRBC Flagged by Analyzer 0 % (0-5); Neutrophil # 5.83 X10^3/uL (2.7-7.7); Neutrophil % 57.7 % (47-70); Platelet Count 224 K/mm3 (150-450); RBC Distribution Width CV 11.9 % (11.6-14.6); RBC Distribution Width SD 38.4 fl (35.1-43.9); Red Blood Count 5.11 M/mm3 (4.6-6.2); White Blood Count 10.1 K/mm3 (4.4-11.0)
[2024-01-14 10:38] LABS: Vitamin D,25 Hydroxy 50.8 ng/mL
[2024-01-14 10:40] LABS: Hemoglobin A1c 8.5 % (3.8-5.6)
[2024-01-14 10:45] LABS: PTHIN 59.6 pg/mL (18.4-80.1)
[2024-01-14 10:49] LABS: Microalbumin,Random Urine 14.4 mg/L (NO RANGE EST.); Microalbumin:Creatinine Ratio 19.4 mg/g CRE (<30 mg/g CRE); Protein, Urine (Random) 8.9 mg/dL (<11.9); Protein:Creat Ratio 120 mg/g CRE (0-200)
[2024-01-14 10:53] LABS: ALB/GLOB Ratio 0.9 RATIO (0.9-2.4); AST(SGOT) 15 U/L (15-37); Alanine Aminotransfer ALT/SGPT 20 U/L (16-61); Albumin, Serum 3.5 g/dL (3.2-5.0); Alkaline Phosphatase 81 U/L (45-117); Anion Gap 7 (5-15); BUN 21 mg/dL (7-18); BUN/Creat Ratio 15.1 RATIO (10-20); Calcium,Total 9.1 mg/dL (8.5-10.1); Chloride 104 mmol/L (98-107); Cholesterol 97 mg/dL (200); Creatinine, Serum 1.39 mg/dL (0.70-1.30); EST Glomerular Filtration Rate 52 mL/min (>60); Est Glom Filt Rate - Afr Amer 63 mL/min (>60); Glucose 191 mg/dL (74-106); High Density Lipoprotein 32 mg/dL; Potassium 3.9 mmol/L (3.5-5.1); Protein, Total 7.5 g/dL (6.4-8.2); Sodium Level 136 mmol/L (136-145); Triglycerides 158 mg/dL; Very Low Density Lipoprotein 32 mg/dL (5-40)
== END | disposition home or self-care (01) ==
LOC: MFPLAB 08:55
PROVIDERS: PCP Family Medicine; Visit Provider Family Medicine
DX: E11.8 Type 2 diabetes mellitus with unspecified complications (principal); E55.9 Vitamin D deficiency, unspecified; N25.81 Secondary hyperparathyroidism of renal origin
CPT/HCPCS: 36415; 80053; 80061; 82043; 82306; 82570; 83036; 83970; 84156; 84443; 85025

== ENCOUNTER 2024-07-20 00:01 | Emergency (ER) | payer MEDICARE, SELFPAY ==
[2024-07-20 00:02] VITALS: BP 143/77; PULSE 99; RESP 16; TEMP 36.7; O2SAT 97; BMI 28.0
--- NOTE | 2024-07-20 00:23 | EX.ED.DYSGE1 ---
HPI History of Present Illness Chief Complaint: Complaint Informant: patient Narrative Narrative: Patient is an 83-year-old male with past medical history of hypertension hyperlipidemia [id number] diabetes and BPH. He states throughout the day today he has been having to force his urine out. He states he gets a sensation that he has to urinate and then when he tries to go it is difficult to do so and he has to bear down and force the action. He states there is some blood when he urinates but denies any dysuria. He states this has been going on for 10 to 12 hours and that he has not been able to completely empty his bladder he has concerns that he may need a Mcqueen catheter and therefore comes in for evaluation. [facility] Medical History Wears hearing aid Wears dentures History of echocardiogram History of Baldwin's esophagus Personal history of colonic polyps GERD (gastroesophageal reflux disease) BPH (benign prostatic hyperplasia) High cholesterol Diabetes HTN (hypertension) Home Medications ?Medication ?Instructions ?Recorded ?Last Taken ?Type atorvastatin 20 mg tablet 20 mg PO DAILY #90 tabs 05/04/19 Unknown History melatonin 10 mg capsule 10 mg PO HS 05/04/19 Unknown History metoprolol tartrate 25 mg tablet 25 mg PO BID #180 tabs 05/04/19 01/05/22 History calcium carbonate (Calcium 600) 600 mg PO DAILY 12/15/21 Unknown History cholecalciferol (vitamin D3) 50 50 mcg PO DAILY 12/15/21 Unknown History mcg (2,000 unit) capsule (D3-2000) lisinopril 20 1 tab PO BID #60 tabs 12/15/21 01/05/22 History mg-hydrochlorothiazide 12.5 mg tablet omeprazole 20 mg capsule,delayed 40 mg PO DAILY #30 caps 12/15/21 01/05/22 History release semaglutide 0.25 mg or 0.5 mg (2 0.25 mg subcut QWEEK 12/15/21 Unknown History mg/1.5 mL) subcutaneous pen injector (Ozempic) tamsulosin 0.4 mg capsule 0.4 mg PO QHS 12/15/21 Unknown History finerenone 10 mg tablet (Kerendia) 10 mg PO DAILY 01/04/22 Unknown History pioglitazone 30 mg tablet 30 mg PO DAILY 01/04/22 Unknown History cephalexin 500 mg capsule 500 mg PO TID 7 days #21 caps 07/20/24 Unknown Rx Allergy/AdvReac Type Severity Reaction Status Date / Time No Known Allergies Allergy Verified 07/20/24 00:02 Family History Mother Diabetes Father Heart disease Sister Breast cancer Surgical History S/P bilateral inguinal hernia repair Social History (Updated 12/15/21 @ 09:01 by Holley Saturday) Smoking Status: Former smoker alcohol intake: never substance use type: does not use ROS ROS ED Constitutional Constitutional ED: Denies chills or fever(s) ENT ENT ED: Denies sore throat Cardiovascular Cardiovascular: Denies chest pain Respiratory/Chest Respiratory/Chest: Denies cough or dyspnea Gastrointestinal Gastrointestinal: Reports abdominal pain; Denies diarrhea, nausea or vomiting Genitourinary Genitourinary ED: Reports hematuria and other Details: Positive difficulty with urination ; Denies dysuria Musculoskeletal Musculoskeletal: Denies back pain Integumentary Denies rash Neurologic Neurologic: Denies headache(s) Hematologic/Lymphatic Hematologic/Lymphatic: Denies easy bleeding or easy bruising EXAM Physical Exam Const Vital Signs: 07/20/24 00:02 07/20/24 01:39 Temperature 98.1 F 98.2 F Temperature Source Oral Pulse Rate 99 89 Respiratory Rate 16 16 Blood Pressure 143/77 H 126/68 H Blood Pressure Mean 99 87 Pulse Ox 97 95 Oxygen Delivery Method Room Air Positive well nourished and well developed General Appearance ED: well developed; Negative for pallor HEENT HEENT Narrative: Normocephalic atraumatic Eyes PERRL and EOMs intact bilaterally General Eye ED: Negative for scleral icterus Neck supple Resp normal respiratory effort and clear to auscultation bilaterally Cardio regular rate and regular rhythm Rate: other Other Details: Heart is regular rate and rhythm Radial and carotid pulses are equal and symmetric GI non-distended GI Narrative: Abdomen is nondistended and bowel sounds are normal active. There is firmness/organomegaly in the suprapubic/lower midline abdominal region consistent with a distended bladder. There is mild pain on palpation at this site. The remainder of the abdominal exam is soft and nontender. No pulsatile mass. No peritoneal signs. Auscultation: normoactive bowel sounds Palpation: soft Narrative: Normal uncircumcised male. No blood or discharge from the urethral meatus. No testicular masses. No overlying secondary soft tissue changes to suggest Daisy's gangrene Back/Spine no CVA tenderness Extremity normal to inspection Neuro oriented x3, CN's II-XII intact bilaterally and no sensory deficits noted Sensorium / Orientation: alert Motor Exam: strength 5/5 throughout Psych mental status grossly normal Skin no rashes or lesions noted General Skin Exam: Negative for jaundice or pallor MDM MDM MDM Narrative Medical decision making narrative: Patient arrived to the ER with stable vitals. He reported that he has been able to urinate throughout the day but it has been only small amounts and difficult to do so. Differential diagnosis is for prostatitis versus urinary retention versus UTI versus pyelonephritis. The patient does not have flank pain going against pyelonephritis. His physical exam shows urinary/bladder distention which would correlate with acute urinary retention. Secondary to this a Mcqueen catheter was placed and drained approximately 1500 mL of urine consistent with acute retention. The sample did show changes consistent with infection as well. However the patient is afebrile and normotensive I have low concern for systemic infection such as urosepsis and as the retention zonogram present throughout the day my concern for VAIBHAV is low and I do not feel the need for blood work. The patient will be started on Rocephin in the ER and placed on Keflex for home based on the urine sample and I will be sent for culture. However as his retention has been resolved and vitals are stable there is no need for further workup and he is otherwise safe for discharge History & Record Review Discussion w/independent historian: Patient Lab Data Attestation: I reviewed the patient's lab results. Labs: Laboratory Results - last 24 hr 07/20/24 00:48 Urine Color Nika Urine Clarity Cloudy Urine pH 5.0 Ur Specific [employer] 1.020 Urine Protein 100 H Urine Glucose (UA) Normal Urine Ketones Negative Urine Occult Blood 250 H Urine Nitrite Positive H Urine Bilirubin Negative Urine Urobilinogen Normal Ur Leukocyte Esterase 25 H Urine RBC 50-100 SEEN Urine WBC 0 SEEN Ur Squamous Epith Cells 0 SEEN Ur Renal Epithelial Cell 0-5 SEEN Urine Bacteria 3+ Urine Mucus 0 SEEN Discharge Plan Triage Chief Complaint: Complaint ED Provider: Mekhi De Jesus Dx/Rx/DC Orders Clinical Impression: UTI (urinary tract infection), Acute urinary retention, BPH (benign prostatic hyperplasia), HTN (hypertension), Non-insulin dependent diabetes mellitus Instructions: Urinary Tract Infections in Men, ED Urinary Retention, Male Prescriptions: New cephalexin 500 mg capsule 500 mg PO TID 7 Days Qty: 21 0RF No Action atorvastatin 20 mg tablet 20 mg PO DAILY Qty: 90 Patient Comments: TAKE 1 TABLET BY MOUTH AT BEDTIME metoprolol tartrate 25 mg tablet 25 mg PO BID Qty: 180 Patient Comments: TAKE 1 TABLET BY MOUTH TWICE DAILY melatonin 10 mg capsule 10 mg PO HS lisinopril-hydrochlorothiazide 20-12.5 mg tablet 1 tab PO BID Qty: 60 omeprazole 20 mg capsule,delayed release(DR/EC) 40 mg PO DAILY Qty: 30 Patient Comments: TAKE 1 CAPSULE BY MOUTH ONCE DAILY 30 45 MINUTES BEFORE BREAKFAST calcium carbonate [Calcium 600] 600 mg calcium (1,500 mg) tablet 600 mg PO DAILY tamsulosin 0.4 mg capsule 0.4 mg PO QHS cholecalciferol (vitamin D3) [D3-2000] 50 mcg (2,000 unit) capsule 50 mcg PO DAILY Ozempic 0.25 mg or 0.5 mg(2 mg/1.5 mL) pen injector 0.25 mg subcut QWEEK Rx Instructions: for 4 doses pioglitazone 30 mg tablet 30 mg PO DAILY Kerendia 10 mg tablet 10 mg PO DAILY Primary Care Provider: Luc Aranda Referrals: Jose Daniel Doll MD [Med Staff - Active Staff] - Luc Aranda MD [Primary Care Provider] - Activity Restrictions/Additional Instructions: Please follow-up with urology for repeat evaluation and to discuss catheter removal. Continue your antibiotics as directed to resolve the UTI. If you have any further concerns or worsening of symptoms please return to the ER for repeat evaluation Print Language: Maltese Disposition Disposition: Home, Self Care
[2024-07-20] MEDS: Lidocaine Jelly 2% 20 ML Syringe (URO-JET) 1 APPLIC TOPICAL (00:33)
[2024-07-20 00:55] LABS: Mucous, Urine 0 SEEN /hpf (<or=2+); Squamous Epithelial Cells - UA 0 SEEN /hpf (0-5); White Blood Cells 0 SEEN /hpf (0-5)
[2024-07-20 00:56] LABS: Color, Urine Amber (Yellow); Glucose, Dipstick Normal (Normal); Ketone-Dipstick Negative (Negative); Leukocyte Esterase-Dipstick 25 /ul (Negative); Nitrite-Dipstick Positive (Negative); Occult Blood-Urine 250 /ul (Negative); Protein-Dipstick 100 mg/dl (Negative); Urine Bilirubin Dipstick Negative (Negative); Urine Clarity Cloudy (Clear); Urine Urobilinogen Normal (Normal)
[2024-07-20 01:10] LABS: Bacteria 3+ /hpf (None Seen); Red Blood Cells-Urine 50-100 SEEN /hpf (0-5); Renal Epithelial Cells 0-5 SEEN /hpf (0-5)
[2024-07-20 01:39] VITALS: BP 126/68; PULSE 89; RESP 16; TEMP 36.8; O2SAT 95
[2024-07-20] MEDS: Ceftriaxone 500 MG Vial IM (01:52)
== END 2024-07-20 02:24 | disposition home or self-care (01) ==
PROVIDERS: Emergency Provider Emergency Medicine; PCP Family Medicine; Visit Provider Emergency Medicine
DX: N39.0 Urinary tract infection, site not specified (principal); E11.9 Type 2 diabetes mellitus without complications; N40.1 Benign prostatic hyperplasia with lower urinary tract symptoms; I10 Essential (primary) hypertension; E78.00 Pure hypercholesterolemia, unspecified; K21.9 Gastro-esophageal reflux disease without esophagitis; Z79.899 Other long term (current) drug therapy; Z79.85 Long-term (current) use of injectable non-insulin antidiabetic drugs; Z87.891 Personal history of nicotine dependence; R33.8 Other retention of urine
CPT/HCPCS: 51702; 81001; 87086; 96372; 99283

== ENCOUNTER 2024-07-22 04:59 | Emergency (ER) | payer MEDICARE, SELFPAY ==
[2024-07-22 05:01] VITALS: BP 156/67; PULSE 84; RESP 16; TEMP 36.6; O2SAT 97; BMI 27.1
--- NOTE | 2024-07-22 05:54 | EDS_ITS ---
HPI History of Present Illness Chief Complaint: Mcqueen C/O Informant: patient Narrative Narrative: Patient is an 83-year-old male with past medical history of hypertension BPH and recent acute urinary retention for which a Mcqueen catheter was placed. He states he has been doing well but this morning awoke with a sensation of pressure within the lower abdomen/pelvis and noticed that the urine was not draining into his bag but was not actually leaking around the catheter out of the penis. He states he tried to adjust the catheter but there is no symptom improvement. He denies any trauma to the area or possible activity which could have led to displacement but as his Mcqueen catheter is no longer working he presents for evaluation [facility] Medical History Wears hearing aid Wears dentures History of echocardiogram History of Baldwin's esophagus Personal history of colonic polyps GERD (gastroesophageal reflux disease) BPH (benign prostatic hyperplasia) High cholesterol Diabetes HTN (hypertension) Home Medications ?Medication ?Instructions ?Recorded ?Last Taken ?Type atorvastatin 20 mg tablet 20 mg PO DAILY #90 tabs 04/17 02/02 Unknown History melatonin 10 mg capsule 10 mg PO HS 05/04/19 Unknown History metoprolol tartrate 25 mg tablet 25 mg PO BID #180 tab s 05/04/19 01/05/22 History calcium carbonate (Calcium 600) 600 mg PO DAILY Unknown History cholecalciferol (vitamin D3) 50 50 mcg PO DAILY Unknown History mcg (2,000 unit) capsule (D3-2000) lisinopril 20 1 tab PO BID #60 tabs 01/05/22 History mg-hydrochlorothiazide 12.5 mg tablet omeprazole 20 mg capsule,delayed 40 mg PO DAILY #30 ca ps 12/15/21 01/05/22 History release semaglutide 0.25 mg or 0.5 mg (2 0.25 mg subcut QWEEK 12/15/21 Unknown History mg/1.5 mL) subcutaneous pen injector (Ozempic) tamsulosin 0.4 mg capsule 0.4 mg PO QHS 12/15/21 Unkno wn History finerenone 10 mg tablet (Kerendia) 10 mg PO DAILY 12/16 07/08 Unknown History pioglitazone 30 mg tablet 30 mg PO DAILY 01/04/22 Unkn own History cephalexin 500 mg capsule 500 mg PO TID 7 days #21 cap s 07/20/24 Unknown Rx Allergy/AdvReac Type Severity Reaction Status Date / Time No Known Allergies Allergy Verified 07/20/24 00:02 Family History Mother Diabetes Father Heart disease Sister Breast cancer Surgical History S/P bilateral inguinal hernia repair Social History Smoking Status: Former smoker alcohol intake: never substance use type: does not use ROS ROS ED Constitutional Constitutional ED: Denies chills or fever(s) ENT ENT ED: Denies sore throat Cardiovascular Cardiovascular: Denies chest pain Respiratory/Chest Respiratory/Chest: Denies cough or dyspnea Gastrointestinal Gastrointestinal: Reports abdominal pain; Denies diarrhea, nausea or vomiting Genitourinary Genitourinary ED: Reports other Details: Positive urinary leakage Musculoskeletal Musculoskeletal: Denies back pain Integumentary Denies rash Neurologic Neurologic: Denies headache(s) Hematologic/Lymphatic Hematologic/Lymphatic: Denies easy bleeding or easy bruising EXAM Physical Exam Const Vital Signs: 07/22/24 05:01 07/22/24 05:57 Temperature 97.9 F 97.8 F Temperature Source Oral Pulse Rate 84 86 Respiratory Rate 16 16 Blood Pressure 156/67 H 132/64 H Blood Pressure Mean 96 86 Pulse Ox 97 95 Oxygen Delivery Method Room Air Positive well nourished and well developed General Appearance ED: well developed; Negative for pallor HEENT HEENT Narrative: Normocephalic atraumatic Eyes PERRL and EOMs intact bilaterally General Eye ED: Negative for scleral icterus Neck supple Resp normal respiratory effort and clear to auscultation bilaterally Cardio regular rate and regular rhythm GI normal to inspection, nondistended, normoactive bowel sounds, non-tender, non- distended and no masses GI Narrative: No organomegaly to suggest acute urinary retention Auscultation: normoactive bowel sounds Palpation: soft Narrative: Mcqueen catheter is in place without blood or discharge from the urethral meatus. However there is no urine noted within the leg bag. No testicular swelling or masses. No overlying soft tissue changes to suggest Daisy's gangrene Back/Spine no CVA tenderness Extremity normal to inspection Neuro oriented x3, CN's II-XII intact bilaterally and no sensory deficits noted Sensorium / Orientation: alert Motor Exam: strength 5/5 throughout Psych mental status grossly normal Skin no rashes or lesions noted and no wounds General Skin Exam: Negative for jaundice or pallor MDM MDM MDM Narrative Medical decision making narrative: Patient presented to the ER mildly hypertensive but has a past medical history of this. He reported leakage of urine around the Mcqueen catheter. On exam there is no urine noted in the leg bag but he does not have organomegaly to suggest acute urinary retention. At this time and most likely diagnosis is Mcqueen catheter malfunction or displacement. Therefore the Mcqueen catheter balloon was deflated and the catheter was repositioned and then reinflated and after doing this the patient had resolution of the pressure sensation and clear yellow urine filled the Mcqueen catheter leg bag. He was watched in the ER and there was no return of leakage. Therefore at this time as it appears his symptoms are simply due to Mcqueen catheter malfunction and vitals are stable there is no need for further workup and is otherwise safe for discharge History & Record Review Discussion w/independent historian: Patient Discharge Plan Triage Chief Complaint: Mcqueen C/O ED Provider: Mekhi De Jesus Dx/Rx/DC Orders Clinical Impression: Malfunction of Mcqueen catheter, HTN (hypertension), BPH (benign prostatic hyperplasia), Non-insulin dependent diabetes mellitus Instructions: Leg Bag Care Dc, ED Mcqueen Catheter, Care Prescriptions: No Action atorvastatin 20 mg tablet 20 mg PO DAILY Qty: 90 Patient Comments: TAKE 1 TABLET BY MOUTH AT BEDTIME metoprolol tartrate 25 mg tablet 25 mg PO BID Qty: 180 Patient Comments: TAKE 1 TABLET BY MOUTH TWICE DAILY melatonin 10 mg capsule 10 mg PO HS lisinopril-hydrochlorothiazide 20-12.5 mg tablet 1 tab PO BID Qty: 60 omeprazole 20 mg capsule,delayed release(DR/EC) 40 mg PO DAILY Qty: 30 Patient Comments: TAKE 1 CAPSULE BY MOUTH ONCE DAILY 30 45 MINUTES BEFORE BREAKFAST calcium carbonate [Calcium 600] 600 mg calcium (1,500 mg) tablet 600 mg PO DAILY tamsulosin 0.4 mg capsule 0.4 mg PO QHS cholecalciferol (vitamin D3) [D3-2000] 50 mcg (2,000 unit) capsule 50 mcg PO DAILY Ozempic 0.25 mg or 0.5 mg(2 mg/1.5 mL) pen injector 0.25 mg subcut QWEEK Rx Instructions: for 4 doses pioglitazone 30 mg tablet 30 mg PO DAILY Kerendia 10 mg tablet 10 mg PO DAILY cephalexin 500 mg capsule 500 mg PO TID 7 Days Qty: 21 0RF Primary Care Provider: Luc Aranda Referrals: Luc Aranda MD [Primary Care Provider] - Print Language: Bahraini Disposition Disposition: Home, Self Care Discharge Date/Time: 07/22/24 05:58
[2024-07-22 05:57] VITALS: BP 132/64; PULSE 86; RESP 16; TEMP 36.6; O2SAT 95
== END 2024-07-22 05:58 | disposition home or self-care (01) ==
PROVIDERS: Emergency Provider Emergency Medicine; PCP Family Medicine; Visit Provider Emergency Medicine
DX: T83.011A Breakdown (mechanical) of indwelling urethral catheter, initial encounter (principal); E11.9 Type 2 diabetes mellitus without complications; I10 Essential (primary) hypertension; N40.1 Benign prostatic hyperplasia with lower urinary tract symptoms; R33.8 Other retention of urine; K21.9 Gastro-esophageal reflux disease without esophagitis; E78.00 Pure hypercholesterolemia, unspecified; Z79.85 Long-term (current) use of injectable non-insulin antidiabetic drugs; Z79.899 Other long term (current) drug therapy; Z87.891 Personal history of nicotine dependence
CPT/HCPCS: 99282; A4216